=== PATIENT | female | born 2000 | race Native Hawaiian/Other Pacific Islander ===

== ENCOUNTER 2024-08-02 16:39 | Outpatient (CLI) | payer OTHER, SELFPAY ==
[2024-08-02 16:54] VITALS: PULSE 78; O2SAT 99
[2024-08-02 16:55] VITALS: BP 97/53; PULSE 75
[2024-08-02] MEDS: ACETAMINOPHEN 500 MG TABLET 1000 MG PO (17:46)
[2024-08-02 17:50] LABS: Appearance Urine Clear (Clear); Bilirubin Urine Negative (Negative); Blood Urine Negative (Negative); Color Urine Yellow (Yellow); Glucose Urine Negative (Negative); Ketones Urine Negative (Negative); Leukocyte Esterase Urine Negative (Negative); Nitrite Urine Negative (Negative); Protein Urine Negative (Negative); Specific Gravity Urine 1.015 (1.000-1.030); Urobilinogen Urine 0.2 (0.2-1.0); pH Urine 7.5 (5.0-8.5)
--- NOTE | 2024-08-02 18:02 | CRLHL7_ITS ---
For Patients: As a result of the Century Cures Act, medical imaging exams and procedure reports are released immediately into your electronic medical record. You may view this report before your referring provider. If you have questions, please contact your health care provider. Indication: Palpable mass superior to the umbilicus. Technique: Ultrasound abdomen limited with color Doppler analysis. Comparison: None. Findings/Impression: In the supraumbilical area of concern is a relatively large fat containing ventral hernia. No sign of bowel involvement. No other abnormality. Dictated by Alek Sanders MD @ 08/02/2024 6:58:28 PM (Electronically Signed)
--- NOTE | 2024-08-02 19:34 | W.PM.OBO ---
OB Outpatient HPI History of Present Illness Date Seen: 08/02/24 History of Present Illness: 23 year old at 24 1/7 weeks gestation, STEPHANIE 11/21/24 by LMP, presents by EMS due to abdominal pain. Patient presents with complaints of a hernia. Patient states that she has noted a bump in her abdomen, close to her umbilicus and to the right side. Patient describes it as golf ball sized, she notes that is more prominent when she is standing and then it is not while she is laying down. She noticed it first May and visited urgent care, they recommended to F/U with her OB provider. Patient states that she did mention it to OB provider and was given return precautions if symptoms worsened. Patient states that this afternoon pain was worse, it comes and goes, localized to the midline right upper abdomen, associated with mild nausea, no vomiting, noticed looser stools today, no fever, no chills. Baby has been moving well, denies abdominal tightening, abnormal vaginal discharge. 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 Baby moving naturally: No Bleeding: No Contractions: No Leaking fluid: No Discharge: No Heartburn: No Back pain: No Meds Home Medications and Allergies Home Medications ?Medication ?Instructions ?Recorded ?Confirmed ?Type No Known Home Medications 08/02/24 08/02/24 History Allergies Allergy/AdvReac Type Severity Reaction Status Date / Time No Known Drug Allergies Allergy Verified 08/02/24 16:59 [facility] Social History Smoking Status: Never smoker History History 2 Elective abortions Para 1 Spontaneous abortions Hx # Term Pregnancies Ectopic pregnancies Hx # Pregnancies Multiple births Number of Living Children 1 OB - H&P: Exam Physical Exam Vital signs: Pulse BP Pulse Ox 75 97/53 L 99 08/02/24 16:55 08/02/24 16:55 08/02/24 16:54 Narrative: VITAL SIGNS: As noted above. GENERAL APPEARANCE: Alert, cooperative female in no acute distress. MOOD & AFFECT: Normal. ABDOMEN: Gravid, no fundal tenderness, soft, no guarding, no rebound, positive bowel sounds, slightly tender to deep palpation of the midline upper abdomen and towards the right side of the right upper quadrant. EXTREMITIES: Nonedematous. Well perfused. Nontender. NST: Appropriate for gestational age, no uterine contractions Imaging: Findings/Impression: In the supraumbilical area of concern is a relatively large fat containing ventral hernia. No sign of bowel involvement. No other abnormality. Labs Labs Laboratory Tests 08/02/24 Range/Units 17:14 Urine Color Yellow (Yellow) Urine Appearance Clear (Clear) Urine pH 7.5 (5.0-8.5) Ur Specific [place] 1.015 (1.000-1.030) Urine Protein Negative (Negative) Urine Glucose (UA) Negative (Negative) Urine Ketones Negative (Negative) Urine Blood Negative (Negative) Urine Nitrite Negative (Negative) Urine Bilirubin Negative (Negative) Urine Urobilinogen 0.2 (0.2-1.0) Ur Leukocyte Esterase Negative (Negative) Assessment and Plan Assessment and plan (1) Abdominal hernia: Status: Acute Plan Fat containing ventral hernia , it seems like it is non reducible?. At this moment pain has improved after acetaminophen and rest. Physical exam no evidence of acute abdomen. Case was discussed with head strength and conditioning coach general surgeon who was able to review US images, in if symptoms are manageable, there is no concern for bowel incarceration, surgical intervention is avoided due to high risk of recurrence. At this moment, patient is stable and symptoms have improved. Following recommendations given: 1. Follow up with primary OB provider within 1 week to discuss current events and findings. 2. Recommend consult with general surgeon, offered to consult with one of our providers in clinic, but patient prefers a provider closer to home. 3. Utilize some support belly band. 4. NO lifting at work until symptoms improve. Frequent breaks from walking at least every 2-3 hours, 15 minutes long.
[2024-08-02 19:37] LABS: Basophils Absolute Auto 0.03 K/uL (0.00-0.30); Basophils Percent Auto 0.3 % (0.0-3.0); Eosinophils Absolute Auto 0.35 K/uL (0.00-0.50); Eosinophils Percent Auto 3.2 % (0.0-7.0); Hematocrit 33.1 % (33.0-51.0); Hemoglobin* 10.8 gm/dL (12.0-16.0); Immature Granulocytes Abs Auto 0.04 K/uL (0.00-0.30); Immature Granulocytes Pct Auto 0.4 %; Lymphocytes Absolute Auto 2.69 K/uL (0.90-2.90); Lymphocytes Percent Auto 24.9 % (20-44); Mean Corpuscular HGB Conc 33 gm/dL (32-36); Mean Corpuscular Hemoglobin 31 pg (26-34); Mean Corpuscular Volume 96 fL (80-100); Neutrophils Absolute Auto 6.92 K/uL (1.7-7.0); Neutrophils Percent Auto 64.2 % (42.0-72.0); Platelet Count* 219 K/uL (140-440); Red Blood Count 3.45 m/uL (4.00-5.20); White Blood Count* 10.79 K/uL (4.50-11.00)
[2024-08-02 19:47] LABS: Slide Review Reflex No
[2024-08-02 19:50] LABS: Albumin* 3.4 g/dL (3.3-5.0); Chloride* 106 mmol/L (96-114); Sodium* 134 mmol/L (135-149)
[2024-08-02 19:51] LABS: Potassium* 3.6 mmol/L (3.6-5.1)
--- NOTE | 2024-08-02 19:51 | PC.OBNST ---
NST Note NST Note Start: 08/02/24 16:59 Freq: ONCE Status: Active Protocol: Document 08/02/24 18:54 WK (Rec: 08/02/24 19:51 WK [id number]) NST Note 2 Para (# of births) 1 EDC 11/20/24 Gestational Age In Weeks & Days 24 Weeks & 2 Days Patient Presented with Complaint(s) of Pain If Pain, describe location RUQ pain- very localized Other Complaints Pt reports having a hernia Appropriate for Gestational Age Yes RN Danyel RNC Date 08/02/24 Appropriate for Gestational Age Yes RN Staci RN Date 08/02/24 OB NST charge Yes Complete NST Note via Write Note Yes The provider's electronic signature indicates the NST is reactive/appropriate for gestational age. *Note to provider: If an addendum is required, open the patient's chart and click on the note under the Nurse/Allied Health tab.
[2024-08-02 19:53] LABS: Alkaline Phosphatase* 98 U/L (40-150); Anion Gap 8 mEq/L (7-15); Aspartate Amino Transferase* 21 U/L (12-35); Bilirubin Total* 0.4 mg/dL (0.1-1.5); Blood Urea Nitrogen* 4 mg/dL (5-24); Carbon Dioxide* 20 mmol/L (20-32); Creatinine* 0.4 mg/dL (0.5-1.5); Estimated Glomerular Filt Rate 143 ml/min; Glucose* 96 mg/dL (60-115); Total Protein* 6.1 g/dL (6.0-8.3)
[2024-08-02 19:54] LABS: Alanine Aminotransferase* 10 U/L (4-35); Calcium* 8.8 mg/dL (8.4-10.6)
== END 2024-08-02 20:51 | disposition home or self-care (01) ==
LOC: OB OUT 16:41 → OB 16:42
PROVIDERS: Visit Provider Obstetrics & Gynecology
DX: O26.892 Other specified pregnancy related conditions, second trimester (principal); K46.9 Unspecified abdominal hernia without obstruction or gangrene; Z3A.24 24 weeks gestation of pregnancy
CPT/HCPCS: 36415; 59025; 76705; 80053; 81003; 85025; G0463; A9270

== ENCOUNTER 2024-08-31 14:35 | Outpatient (CLI) | payer MEDICAID, SELFPAY | END 2024-08-31 14:36 | disposition home or self-care (01) | PROVIDERS: Visit Provider Obstetrics & Gynecology | DX: Z34.83 Encounter for supervision of other normal pregnancy, third trimester (principal) | CPT/HCPCS: 86592 ==

== ENCOUNTER 2024-09-17 13:42 | Outpatient (CLI) | payer MEDICAID, SELFPAY ==
--- NOTE | 2024-09-17 14:00 | CRLHL7_ITS ---
For Patients: As a result of the Century Cures Act, medical imaging exams and procedure reports are released immediately into your electronic medical record. You may view this report before your referring provider. If you have questions, please contact your health care provider. INDICATION: Third trimester scan, evaluate growth. uterine size-date discrepancy COMPARISON: none TECHNIQUE: Real time hoffman scale imaging of the fetus was performed. FINDINGS: Sonographic imaging demonstrates a single living intrauterine gestation. Fetus demonstrates a regular cardiac rate of 144 beats per minute. Fetus has a vertex position. The placenta lies posteriorly. Amniotic fluid volume appears normal and there is a single deepest vertical pocket: 6.6 cm. The estimated weight is 1882gm which lies at the 81st %. BPD greater than 97th percentile. HC 80th percentile. AC 96th percentile. FL 8th percentile. The HC/AC ratio measures 1.03 range (0.96-1.13). IMPRESSION: Sonographic gestational age 32 weeks 2 days and a sonographic due date of 11/10/2024. Sonographic age 11 days ahead of the clinical age. Estimated weight 81st percentile. Abdominal circumference 96th percentile. BPD greater than 97th percentile. Dictated by Bernabe Barrios MD @ 09/18/2024 9:48:17 AM (Electronically Signed)
== END 2024-09-17 13:43 | disposition home or self-care (01) ==
LOC: US 13:43
PROVIDERS: Visit Provider Obstetrics & Gynecology
DX: O36.63X0 Maternal care for excessive fetal growth, third trimester, not applicable or unspecified (principal); Z3A.32 32 weeks gestation of pregnancy
CPT/HCPCS: 76816

== ENCOUNTER 2024-09-24 19:35 | Outpatient (CLI) | payer MEDICAID, SELFPAY ==
[2024-09-24 19:51] VITALS: BP 99/64; PULSE 83
[2024-09-24 20:14] LABS: Appearance Urine Clear (Clear); Bilirubin Urine Negative (Negative); Blood Urine Negative (Negative); Color Urine Yellow (Yellow); Glucose Urine Negative (Negative); Ketones Urine Negative (Negative); Leukocyte Esterase Urine Negative (Negative); Nitrite Urine Negative (Negative); Protein Urine Negative (Negative); Urobilinogen Urine 0.2 (0.2-1.0)
--- NOTE | 2024-09-24 20:18 | CRLHL7_ITS ---
For Patients: As a result of the Century Cures Act, medical imaging exams and procedure reports are released immediately into your electronic medical record. You may view this report before your referring provider. If you have questions, please contact your health care provider. INDICATION: Flank pain TECHNIQUE: Limited ultrasound examination of the kidneys and bladder was performed. Grayscale and color Doppler images were obtained. COMPARISON: None. FINDINGS: Right kidney: 12.3 x 5.3 x 5.6 cm. Normal in size and echogenicity. Normal cortex. No suspicious renal masses. No hydronephrosis or obstructive calculus identified. Left kidney: 10.8 x 6.7 x 6.1 cm. Normal in size and echogenicity. Normal cortex. No suspicious renal masses. No hydronephrosis or obstructive calculus identified. Bladder: Unremarkable. Prevoid volume of 52 mL. No postvoid images obtained. Color Doppler images reveal bilateral ureteral jets. IMPRESSION: Unremarkable ultrasound examination of the kidneys and bladder. No hydronephrosis. Dictated by Rowdy Kilpatrick MD @ 09/24/2024 9:25:48 PM (Electronically Signed)
[2024-09-24 20:28] LABS: Amnisure Rom* Negative
[2024-09-24 20:56] LABS: Clue Cells No Clue Cells Seen (None Seen); Trichomonas No Trichomonas Seen (None Seen); Yeast No Yeast Seen (None Seen)
[2024-09-24 21:01] LABS: Fetal Fibronectin* Negative (Negative)
[2024-09-24 21:56] VITALS: BP 110/66; PULSE 75
--- NOTE | 2024-09-24 23:20 | PC.OBNST ---
NST Note NST Note Start: 09/24/24 19:41 Freq: ONCE Status: Discharge Protocol: Document 09/24/24 23:19 FABIOLA (Rec: 09/24/24 23:20 FABIOLA [id number]) NST Note 2 Para (# of births) 1 EDC 11/21/24 Gestational Age In Weeks & Days 31 Weeks & 5 Days Patient Presented with Complaint(s) of Contractions/cramping Reactive Yes Appropriate for Gestational Age Yes RN lobo Nicole RN Date 09/24/24 Reactive Yes Appropriate for Gestational Age Yes EBER Torres RN Date 09/24/24 OB NST charge Yes Complete NST Note via Write Note Yes The provider's electronic signature indicates the NST is reactive/appropriate for gestational age. *Note to provider: If an addendum is required, open the patient's chart and click on the note under the Nurse/Allied Health tab.
== END 2024-09-24 23:18 | disposition home or self-care (01) ==
LOC: OB OUT 19:35 → OB 19:38
PROVIDERS: Visit Provider Obstetrics & Gynecology
DX: O47.03 False labor before 37 completed weeks of gestation, third trimester (principal); Z3A.31 31 weeks gestation of pregnancy
CPT/HCPCS: 59025; 76770; 81003; 84112; 87210; G0463

== ENCOUNTER 2024-10-01 07:38 | Emergency (ER) | payer MEDICAID, SELFPAY ==
[2024-10-01] VITALS (15 sets, daily range): BP systolic 100–114; BP diastolic 59–72; PULSE 80–99; RESP 24; TEMP 36.3; O2SAT 94–99; BMI 31.7
--- NOTE | 2024-10-01 08:11 | ED.SOB ---
HPI - SOB/Dyspnea General Time Seen by Provider: 08:11 Date Seen: 10/01/24 Chief Complaint: Shortness of Breath/Dyspnea Stated Complaint: shortness of breath, 32 weeks Time Seen by Provider: 10/01/24 08:11 Source: patient and RN notes reviewed Mode of arrival: ambulatory Limitations: no limitations History of Present Illness HPI Narrative: Dipesh is a very pleasant 23-year-old female at approximately 32 weeks with 1 living child who comes to the emergency room with her mother for evaluation of chest pain. Patient notes that she got up this morning to go to work at [employer] in [place] at approximately 0300 hours. Shortly thereafter she developed chest pain in the upper aspect of her sternum. This was associated with shortness of breath. She also agrees that she got some diarrhea today and has had a mild cough that has been nonproductive. She has had no known exposures to COVID but her mom who is with her states that she has had cold-like symptoms and her son has a cough. She has not developed any fevers. She has no history of heart issues. In the 1st patient developed gestational diabetes as well as preeclampsia. Patient's mom describes difficulty in diagnosing preeclampsia as she states that the blood pressure was always normal. She also states that she feels like her daughters hands have been more swollen right greater than left and patient notes that she has been seeing occasional spots in her vision and that yesterday her right eye got really blurry and she could not see out of it. This has happened before. She has not had any belly pain. Patient's mom further describes a request that she have a this time as last time the induced her and because she does not dilate they had to give her medication and when she had the baby she had a significant vaginal tear and had to go to the OR. Related Data Home Medications ?Medication ?Instructions ?Recorded ?Confirmed ferrous sulfate 325 mg (65 mg 325 mg PO QDAY 09/17/24 10/01/24 iron) tablet (Feosol) Previous Rx's ?Medication ?Instructions ?Recorded famotidine 20 mg tablet (Pepcid) 20 mg PO BID #60 tabs 10/01/24 Allergies Allergy/AdvReac Type Severity Reaction Status Date / Time cat dander Allergy Mild Congested Verified 10/01/24 07:54 nickel Allergy Mild Rash Verified 10/01/24 07:54 Review of Systems Status of ROS: Reports: 10 or more systems reviewed and unremarkable except as noted in History and below Const: Denies: fever or chills Eyes: Reports: blurry vision and floaters ENMT: Denies: throat pain or nasal discharge Cardio: Reports: chest pain, edema (In the hand) and shortness of breath with exertion; Denies: palpitations, swelling of feet/ankles or lightheadedness Resp: Reports: shortness of breath and cough; Denies: wheezing GI: Reports: diarrhea; Denies: abdominal pain, nausea or vomiting : Denies: painful urination Musculo: Denies: back pain Neuro: Reports: headache (Intermittent and during the whole ) Allergy/Immuno: Denies: wheezing PFSH PFS Medical History History of pre-eclampsia ?Z87.59 - Personal history of other complications of , childbirth and the puerperium (ICD-10) History of gestational diabetes ?Z86.32 - Personal history of gestational diabetes (ICD-10) Social History What is your current living situation?: I presently have a place to live Problems where you live: no known problems In the past 12 months, utilities in danger of being shut off: no In past 12 months, lack of transportation kept you from medical appts, meetings, work, or getting things needed for daily living: no In the past 12 mos, have been you worried that your food would run out before you had money to buy more?: never true In the past 12 mos, the food you bought just didn't last and you didn't have money to buy more?: never true Smoking Status: Never smoker Do you use any of these nicotine containing products: None How often do you have a drink containing alcohol: never How often do you have six or more drinks on one occasion: Never AUDIT-C Alcohol total score: 0 Non-prescribed substance use: denies use How often does anyone, including family, friends and others, physically hurt you: never How often does anyone, including family, friends and others, insult or talk down to you: never How often does anyone, including family, friends and others, threaten you with harm: never How often does anyone, including family, friends and others, scream or curse at you: rarely Little interest or pleasure in doing things: not at all Feeling down, depressed, or hopeless: not at all Do you think of yourself as: straight/heterosexual Gender Identity: female Are you currently sexually active: Yes In the past 12 months, how many sex partners have you had: one service: No Exam Narrative: Exam Narrative: Patient is alert and oriented. Her EOM is full and pupils are equal reactive. Her head is atraumatic. Oral cavity with moist mucous membranes. Neck is supple without lymphadenopathy. Heart is with a regular rate and rhythm. Lung sounds are distant but they are equal and there is no wheezing. She is somewhat tachypneic but improves with distraction. Heart with out murmur or rub. Abdomen is gravid. No tenderness in the right upper quadrant. I do not note any edema of the extremities. Lower extremities without edema rash calf tenderness or erythema. Const: Vital Signs, click to edit/add: Vital Signs - 24 hr 10/01/24 07:47 10/01/24 08:16 10/01/24 08:31 Temperature 97.3 F L Pulse Rate Pulse Rate [Pulse Oximeter] 86 Respiratory Rate 24 Blood Pressure 110/69 100/59 L Blood Pressure [Ri ght Upper Arm] 105/64 Pulse Oximetry 98 Oxygen Delivery Me od Room Air 10/01/24 09:09 10/01/24 09:10 10/01/24 09:15 Temperature Pulse Rate 84 86 91 Pulse Rate [Pulse Oximeter] Respiratory Rate Blood Pressure 108/66 Blood Pressure [Ri ght Upper Arm] Pulse Oximetry 96 94 97 Oxygen Delivery Me thod 10/01/24 09:30 10/01/24 09:31 10/01/24 09:45 Temperature Pulse Rate 80 84 83 Pulse Rate [Pulse Oximeter] Respiratory Rate Blood Pressure 108/65 Blood Pressure [Ri ght Upper Arm] Pulse Oximetry 96 96 96 Oxygen Delivery Me thod 10/01/24 10:00 10/01/24 10:01 10/01/24 10:15 Temperature Pulse Rate 86 95 99 Pulse Rate [Pulse Oximeter] Respiratory Rate Blood Pressure 112/66 Blood Pressure [Ri ght Upper Arm] Pulse Oximetry 98 99 [facility] 10:30 10/01/24 10:31 10/01/24 11:01 Temperature Pulse Rate 84 97 Pulse Rate [Pulse Oximeter] Respiratory Rate Blood Pressure 105/69 114/72 Blood Pressure [Ri ght Upper Arm] Pulse Oximetry 98 98 [facility] Documenting provider has reviewed patient's vital signs: yes Course Course ED Course: At this time differential diagnosis for chest pain includes reflux/GERD, acute coronary syndrome, pericarditis, cardiomyopathy, COVID, pneumonia, chest wall pain, anxiety, preeclampsia. IV will be placed in labs to include CBC, comprehensive, troponin, CRP, D-dimer, urinalysis ordered. I also spoke with OB and they have added pertinent OB labs on as well for preeclampsia. EKG and cardiac monitoring ordered. Ob is coming down to monitor baby as well. Reevaluation(s) Reevaluation #1: Patient seen by OB nursing staff. Recommended Tylenol for headache which we will give. All the preeclampsia labs are reassuring at this time with normal creatinine, alkaline phosphatase within normal limits for , normal platelets and normal protein ratio. EKG by my read shows sinus rhythm and there are no acute ST or T-wave changes. Troponin is negative. Plan on 2nd troponin at 1045 hours. I did speak with regarding plan going forward. Patient's D-dimer being elevated is normal. I was hopeful that it would perhaps be a near normal and we could rule out possibility of PE as patient has normal heart rate and oxygen levels. Reflux is a more likely diagnosis and thus we have given 2 Tums tablets the patient. Plan is to also test for COVID. If chest pain improves patient will be discharged to follow-up at 1400 hours this afternoon with primary OB. If chest pain continues plan on CT of the chest rule out PE protocol. Reevaluation #2: Patient notes resolution of the headache with Tylenol. Notes that her chest pain is much improved. Discussed with patient and her mom risks benefits of CT. At this time she has not had any tachycardia, maintains an appropriate O2 saturation and has no calf swelling tenderness or history of DVT. While her D-dimer is elevated, this can be normal in . At this time patient and her mom would like to avoid CT and I do agree with this decision. Vital Signs Vital signs: Initial Vital Signs Temperature 97.3 F L 10/01/24 07:47 Temperature Source Oral 10/01/24 07:47 Pulse Rate 86 10/01/24 07:47 Respiratory Rate 24 10/01/24 07:47 Respiratory Effort Normal, Spontaneous, Non-Labored 10/01/24 07:47 Respiratory Depth Normal 10/01/24 07:47 Respiratory Pattern Normal 10/01/24 07:47 Blood Pressure 105/64 10/01/24 07:47 Blood Pressure Mean 77 10/01/24 07:47 Blood Pressure Position Sitting 10/01/24 07:47 Pulse Oximetry 98 10/01/24 07:47 Oxygen Delivery Method Room Air 10/01/24 07:47 Vital Signs Temperature 97.3 F L 10/01/24 07:47 Pulse Rate 86 10/01/24 07:47 Respiratory Rate 24 10/01/24 07:47 Blood Pressure 105/64 10/01/24 07:47 Pulse Oximetry 98 10/01/24 07:47 Oxygen Delivery Method Room Air 10/01/24 07:47 Temperature 97.3 F L 10/01/24 07:47 Pulse Rate 97 10/01/24 10:31 Respiratory Rate 24 10/01/24 07:47 Blood Pressure 114/72 10/01/24 11:01 Pulse Oximetry 98 10/01/24 10:31 Oxygen Delivery Method Room Air 10/01/24 07:47 Medications Administered Medications: Discontinued Medications Generic Name Dose Route Start Last Admin Trade Name Shanique PRN Reason Stop Dose Admin Acetaminophen 1,000 mg 10/01/24 09:45 10/01/24 09:56 Acetaminophen 500 Mg Tablet PO 10/01/24 09:46 1,000 mg ONCE ONE Administration Calcium Carbonate 500 mg 10/01/24 09:46 10/01/24 10:30 Calcium Carbonate 500 Mg Chew PO 10/01/24 09:47 500 mg ONCE ONE Administration Famotidine 20 mg 10/01/24 11:16 10/01/24 11:31 Famotidine 20 Mg Tablet PO 10/01/24 11:17 20 mg ONCE ONE Administration MDM - SOB/Dyspnea MDM Narrative Medical decision making narrative: 1. Atypical chest pain -troponins negative x2 an EKG reassuring. While D-dimer elevated patient has no hypoxia, tachycardia, history of DVT or calf tenderness. She is feeling much better at this point after Tums and Tylenol. 2. Reflux-patient noted to have improvement after Tums. Will give her dose of Pepcid 20 mg here in the ED and I would like her to continue this b.i.d. for her . If this does not work she may also use omeprazole. 3. Hyperglycemia-discussed this with OBGYN and they will address this in the clinic. Patient has an appointment this afternoon at 1430 hours. 4. History of preeclampsia-laboratory values reassuring and there is no evidence of hypertension, protein urea or alteration of her labs. While she is at higher risk for preeclampsia as she developed this during her 1st her tests are reassuring today. 5. Disposition-home at this time. COVID test is outstanding but they agree to be called at home if this would become positive. Both parties feel comfortable going home. Addendum: COVID negative. Medical Records Attestation: I reviewed the patient's medical records. Lab Data Attestation: I reviewed the patient's lab results. Labs: Lab Results 10/01/24 10/01/24 10/01/24 Range/Units 08:22 08:45 08:45 WBC 7.04 (4.50-11.00) K/uL RBC 3.41 L (4.00-5.20) m/uL Hgb 10.0 L (12.0-16.0) gm/dL Hct 31.8 L (33.0-51.0) % MCV 93 (80-100) fL MCH 29 (26-34) pg MCHC 31 L (32-36) gm/dL RDW Coeff of Violet 14.0 (11.5-15.5) % Plt Count 198 (140-440) K/uL Neut % (Auto) 60.2 (42.0-72.0) % Lymph % (Auto) 25.7 (20-44) % [place] % (Auto) 8.1 (0.0-11.0) % Eos % (Auto) 4.0 (0.0-7.0) % Baso % (Auto) 0.4 (0.0-3.0) % Neut # (Auto) 4.24 (1.7-7.0) K/uL Lymph # (Auto) 1.81 (0.90-2.90) K/uL [place] # (Auto) 0.60 (0.00-0.90) K/UL Eos # (Auto) 0.28 (0.00-0.50) K/uL Baso # (Auto) 0.03 (0.00-0.30) K/uL Abs Immat Gran (auto) 0.11 (0.00-0.30) K/uL Imm/Tot Granulo (auto) 1.6 % D-Dimer Quant (PE/DVT) 1.89 H (0.00-0.50) ug/ml Sodium 131 L (135-149) mmol/L Potassium 3.4 L (3.6-5.1) mmol/L Chloride 106 (96-114) mmol/L Carbon Dioxide 18 L (20-32) mmol/L Anion Gap 7 (7-15) mEq/L BUN 5 Cancelled (5-24) mg/dL Creatinine 0.3 L (0.5-1.5) mg/dL Estimated Creat Clear Estimated GFR ml/min Glucose (60-115) mg/dL Calcium (8.4-10.6) mg/dL Total Bilirubin (0.1-1.5) mg/dL AST (12-35) U/L ALT (4-35) U/L Alkaline Phosphatase (40-150) U/L Total Protein (6.0-8.3) g/dL Albumin (3.3-5.0) g/dL Urine Color Yellow (Yellow) Urine Appearance Slightly Cloudy A (Clear) Urine pH 6.0 (5.0-8.5) Ur Specific [place] 1.020 (1.000-1.030) Urine Protein Negative (Negative) Urine Glucose (UA) 3+ A (Negative) Urine Ketones Trace A (Negative) Urine Blood Negative (Negative) Urine Nitrite Negative (Negative) Urine Bilirubin Negative (Negative) Urine Urobilinogen 1.0 (0.2-1.0) Ur Leukocyte Esterase Negative (Negative) Urine RBC 0-2 (0-2) Urine WBC 5-10 A (0-5) Ur Squamous Epith Cells Few (None-Few) Urine Bacteria Moderate A (None) Urine Creatinine mg/dL Protein/Creatinin Ratio (0-0.19) Urine Total Protein mg/dL SARS-CoV-2 (PCR) (Negative) Influenza Type A (PCR) (Negative) Influenza Type B (PCR) (Negative) RSV (PCR) (Negative) POC Troponin I 0.00 L (0.01-0.04) ng/ml 10/01/24 10/01/24 10/01/24 Range/Units 08:45 08:45 08:45 WBC (4.50-11.00) K/uL RBC (4.00-5.20) m/uL Hgb (12.0-16.0) gm/dL Hct (33.0-51.0) % MCV (80-100) fL MCH (26-34) pg MCHC (32-36) gm/dL RDW Coeff of Violet (11.5-15.5) % Plt Count (140-440) K/uL Neut % (Auto) (42.0-72.0) % Lymph % (Auto) (20-44) % [place] % (Auto) (0.0-11.0) % Eos % (Auto) (0.0-7.0) % Baso % (Auto) (0.0-3.0) % Neut # (Auto) (1.7-7.0) K/uL Lymph # (Auto) (0.90-2.90) K/uL [place] # (Auto) (0.00-0.90) K/UL Eos # (Auto) (0.00-0.50) K/uL Baso # (Auto) (0.00-0.30) K/uL Abs Immat Gran (auto) (0.00-0.30) K/uL Imm/Tot Granulo (auto) % D-Dimer Quant (PE/DVT) (0.00-0.50) ug/ml Sodium (135-149) mmol/L Potassium (3.6-5.1) mmol/L Chloride (96-114) mmol/L Carbon Dioxide (20-32) mmol/L Anion Gap (7-15) mEq/L BUN (5-24) mg/dL Creatinine Cancelled (0.5-1.5) mg/dL Estimated Creat Clear 243.32 Cancelled Estimated GFR 154 Cancelled ml/min Glucose 174 H (60-115) mg/dL Calcium 8.6 (8.4-10.6) mg/dL Total Bilirubin < 0.1 L (0.1-1.5) mg/dL AST 16 (12-35) U/L ALT (4-35) U/L Alkaline Phosphatase (40-150) U/L Total Protein (6.0-8.3) g/dL Albumin (3.3-5.0) g/dL Urine Color (Yellow) Urine Appearance (Clear) Urine pH (5.0-8.5) Ur Specific [place] (1.000-1.030) Urine Protein (Negative) Urine Glucose (UA) (Negative) Urine Ketones (Negative) Urine Blood (Negative) Urine Nitrite (Negative) Urine Bilirubin (Negative) Urine Urobilinogen (0.2-1.0) Ur Leukocyte Esterase (Negative) Urine RBC (0-2) Urine WBC (0-5) Ur Squamous Epith Cells (None-Few) Urine Bacteria (None) Urine Creatinine mg/dL Protein/Creatinin Ratio (0-0.19) Urine Total Protein mg/dL SARS-CoV-2 (PCR) (Negative) Influenza Type A (PCR) (Negative) Influenza Type B (PCR) (Negative) RSV (PCR) (Negative) POC Troponin I (0.01-0.04) ng/ml 10/01/24 10/01/24 10/01/24 Range/Units 08:45 08:45 09:00 WBC (4.50-11.00) K/uL RBC (4.00-5.20) m/uL Hgb (12.0-16.0) gm/dL Hct (33.0-51.0) % MCV (80-100) fL MCH (26-34) pg MCHC (32-36) gm/dL RDW Coeff of Violet (11.5-15.5) % Plt Count (140-440) K/uL Neut % (Auto) (42.0-72.0) % Lymph % (Auto) (20-44) % [place] % (Auto) (0.0-11.0) % Eos % (Auto) (0.0-7.0) % Baso % (Auto) (0.0-3.0) % Neut # (Auto) (1.7-7.0) K/uL Lymph # (Auto) (0.90-2.90) K/uL [place] # (Auto) (0.00-0.90) K/UL Eos # (Auto) (0.00-0.50) K/uL Baso # (Auto) (0.00-0.30) K/uL Abs Immat Gran (auto) (0.00-0.30) K/uL Imm/Tot Granulo (auto) % D-Dimer Quant (PE/DVT) (0.00-0.50) ug/ml Sodium (135-149) mmol/L Potassium (3.6-5.1) mmol/L Chloride (96-114) mmol/L Carbon Dioxide (20-32) mmol/L Anion Gap (7-15) mEq/L BUN (5-24) mg/dL Creatinine (0.5-1.5) mg/dL Estimated Creat Clear Estimated GFR ml/min Glucose (60-115) mg/dL Calcium (8.4-10.6) mg/dL Total Bilirubin (0.1-1.5) mg/dL AST Cancelled (12-35) U/L ALT 12 Cancelled (4-35) U/L Alkaline Phosphatase 179 H (40-150) U/L Total Protein 6.0 (6.0-8.3) g/dL Albumin 3.2 L (3.3-5.0) g/dL Urine Color (Yellow) Urine Appearance (Clear) Urine pH (5.0-8.5) Ur Specific [place] (1.000-1.030) Urine Protein (Negative) Urine Glucose (UA) (Negative) Urine Ketones (Negative) Urine Blood (Negative) Urine Nitrite (Negative) Urine Bilirubin (Negative) Urine Urobilinogen (0.2-1.0) Ur Leukocyte Esterase (Negative) Urine RBC (0-2) Urine WBC (0-5) Ur Squamous Epith Cells (None-Few) Urine Bacteria (None) Urine Creatinine 72.8 mg/dL Protein/Creatinin Ratio 0.07 (0-0.19) Urine Total Protein < 5 mg/dL SARS-CoV-2 (PCR) (Negative) Influenza Type A (PCR) (Negative) Influenza Type B (PCR) (Negative) RSV (PCR) (Negative) POC Troponin I (0.01-0.04) ng/ml 10/01/24 10/01/24 Range/Units 10:30 10:45 WBC (4.50-11.00) K/uL RBC (4.00-5.20) m/uL Hgb (12.0-16.0) gm/dL Hct (33.0-51.0) % MCV (80-100) fL MCH (26-34) pg MCHC (32-36) gm/dL RDW Coeff of Violet (11.5-15.5) % Plt Count (140-440) K/uL Neut % (Auto) (42.0-72.0) % Lymph % (Auto) (20-44) % [place] % (Auto) (0.0-11.0) % Eos % (Auto) (0.0-7.0) % Baso % (Auto) (0.0-3.0) % Neut # (Auto) (1.7-7.0) K/uL Lymph # (Auto) (0.90-2.90) K/uL [place] # (Auto) (0.00-0.90) K/UL Eos # (Auto) (0.00-0.50) K/uL Baso # (Auto) (0.00-0.30) K/uL Abs Immat Gran (auto) (0.00-0.30) K/uL Imm/Tot Granulo (auto) % D-Dimer Quant (PE/DVT) (0.00-0.50) ug/ml Sodium (135-149) mmol/L Potassium (3.6-5.1) mmol/L Chloride (96-114) mmol/L Carbon Dioxide (20-32) mmol/L Anion Gap (7-15) mEq/L BUN (5-24) mg/dL Creatinine (0.5-1.5) mg/dL Estimated Creat Clear Estimated GFR ml/min Glucose (60-115) mg/dL Calcium (8.4-10.6) mg/dL Total Bilirubin (0.1-1.5) mg/dL AST (12-35) U/L ALT (4-35) U/L Alkaline Phosphatase (40-150) U/L Total Protein (6.0-8.3) g/dL Albumin (3.3-5.0) g/dL Urine Color (Yellow) Urine Appearance (Clear) Urine pH (5.0-8.5) Ur Specific [place] (1.000-1.030) Urine Protein (Negative) Urine Glucose (UA) (Negative) Urine Ketones (Negative) Urine Blood (Negative) Urine Nitrite (Negative) Urine Bilirubin (Negative) Urine Urobilinogen (0.2-1.0) Ur Leukocyte Esterase (Negative) Urine RBC (0-2) Urine WBC (0-5) Ur Squamous Epith Cells (None-Few) Urine Bacteria (None) Urine Creatinine mg/dL Protein/Creatinin Ratio (0-0.19) Urine Total Protein mg/dL SARS-CoV-2 (PCR) Negative SARS-CoV-2 (Negative) Influenza Type A (PCR) Negative PCR FLU A (Negative) Influenza Type B (PCR) Negative PCR FLU B (Negative) RSV (PCR) Negative PCR RSV (Negative) POC Troponin I 0.00 L (0.01-0.04) ng/ml ECG Data Attestation: I personally reviewed and interpreted this ECG as follows: ECG interpretation date: 10/01/24 Interpretation: EKG by my read shows sinus rhythm at a rate of 88. No evidence of acute ST or T-wave changes evidence of right heart strain. QT and IA intervals within normal limits. Discharge Plan Discharge Clinical Impression: Atypical chest pain, History of pre-eclampsia, Hyperglycemia Acid reflux Qualifiers: Esophagitis presence: esophagitis presence not specified Qualified Code(s): K21.9 - Gastro-esophageal reflux disease without esophagitis Headache Qualifiers: Headache type: unspecified Headache chronicity pattern: unspecified pattern Intractability: not intractable Qualified Code(s): R51.9 - Headache, unspecified Patient Disposition: Home, Self-Care Condition: Improved Additional Instructions: 1. You received your 1st dose of Pepcid here in the emergency room. This medication is every 12 hours and works to suppress acid production in the stomach. You may also use Tums occasionally but avoid Rolaids as this has salt in it. I did send a prescription to your pharmacy but [id number] the dose would be Pepcid 20 mg every 12 hours or twice a day. 2. Your blood sugar is high today and will be addressed in the clinic after my discussion with OBGYN 3. Rest and push fluids. 4. Will call you at home if your COVID test is positive. Your EKG for your heart was normal today and you have 2 blood test that were negative for any heart attack. Prescriptions: New famotidine [Pepcid] 20 mg tablet 20 mg PO BID Qty: 60 2RF No Action ferrous sulfate [Feosol] 325 mg (65 mg iron) tablet 325 mg PO QDAY Follow Up/Referrals: Provider,Not a Local [Non-Staff] - Stand Alone Forms: MyHealth Info Instructions
--- OUTSIDE RECORDS SUMMARY | 2024-10-01 08:36 | XMS_ITS | Clinical Summary ---
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 Name Role Phone Unknown, Md Primary Care Provider Melvi luu Unknown, Unavailable Unavailable Social History Tobacco Use Types Packs/Day Years Used Date Smoking Tobacco: Never Assessed Sex and Gender Information Value Date Recorded Sex Assigned at Not on file Gender Identity Not on file Sexual Orientation Not on file Last Filed Vital Signs Vital Sign Reading Time Taken Comments Blood Pressure - - Pulse - - Temperature - - Respiratory Rate - - Oxygen Saturation - - Inhaled Oxygen Concentration - - Weight 65.8 kg (145 lb) 09/01/2021 2:09 PM CDT Height 160 cm (5' 3) 09/01/2021 2:09 PM CDT Body Mass Index 25.69 09/01/2021 2:09 PM CDT Plan of Treatment Health Maintenance Due Date Last Done Comments Chlamydia/Gonorrhea Screening 2001 Evaluate Sexual History 2001 Hepatitis C Screening 2001 Pap Smear 2001 Anxiety Screening (EDDIE-2) 2002 Depression Assessment (PHQ-2) 2002 COVID-19 Vaccine ( season) 2024 07/15/2021, 06/24/2021 Influenza Vaccine (#1) 2024 10/01/2016 Adult Tetanus Booster 03/22/2032 03/22/2022, 013 RSV Vaccines (1 - 1-dose 75+ series) 2076 Pneumococcal <65 Aged Out 06/17/2003, 09/2002, 02/14/2002 No longer eligible based on patient's age to complete this topic HPV Vaccine Completed 11/07/2013, 06/21, 03/30/2013, Additional history exists Care Teams 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
--- OUTSIDE RECORDS SUMMARY | 2024-10-01 08:36 | XMS_ITS | Referral Summary ---
Author Organization [facility] Address [address] [place] [id number] Care Team Providers Care Poke In Name Role Phone Unknown, Primary Care Provider Melvi luu Unknown, Unavailable [...] 09/01/2021 2:09 PM CDT Plan of Treatment Not on file Care Teams Poke In Relationship Specialty Start Date End Date Unknown, NO ADDRESS/PHONE/FAX AFFILIATED PCP - General 08/07/21 Unknown, NO ADDRESS/PHONE/FAX AFFILIATED PCP - [facility] 08/07/21
--- OUTSIDE RECORDS SUMMARY | 2024-10-01 08:36 | XMS_ITS | Referral Summary ---
Author Organization [facility] Address [address] [place] [address]. 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 Do not apply to face or body folds. 45 g 1 8 Active UNABLE TO FIND MEDICATION NAME: Unknown to Family monthly injections for Contol. Active amitriptyline (ELAVIL) 10 MG tabletIndications :Migraine without aura and without status migrainosus, not intractable Week 1) take 1 tablet 45 minutes before bedtime Week 2 and after) take 2 tablets 45 minutes before bedtime 60 tablet 3 9 Active ibuprofen (ADVIL/MOTRIN) 200 MG tabletIndications :Migraine without aura and without status migrainosus, not intractable Take 3 tablets at headache onset. You may repeat this dose after 6-8 hours if the headache is ongoing. Do not take more than 2 doses in 24 hours. Do not use more than 2 days per week. 100 tablet 9 Active Vit-Fe Fumarate-FA ( MULTIVITAMIN W/IRON) 27-0.8 MG tabletIndications : Take 1 tablet by mouth daily Active acetaminophen (TYLENOL) 500 MG tablet Take 500-1,000 mg by mouth every 6 hours as needed for mild pain Active ondansetron (ZOFRAN) 4 MG tabletIndications :Non-intractable vomiting with nausea, unspecified vomiting type Take 1 tablet (4 mg) by mouth every 8 hours as needed for nausea 3 tablet 2 Active Active Problems Problem Noted Date Diagnosed Date Encounter for triage in patient 022 Neck pain 11/30/2018 Head injury 11/05/2018 Herpes simplex virus (HSV) infection 02/27/2007 Overview (08/21/2015): Problem list name updated by automated process. Provider to review Immunizations Name Administration Dates Next Due DTAP (<7y) 07/16/2008, 7,06/17/2003,2001,03/26/2002,02/14/2002 HEPA 07/11/2007,11/28/2003 HEPATITIS A (PEDS 12M-18Y) 07/16/2008 HIB (PRP-T) 06/17/2003, 2,03/26/2002,2001 HPV Quadrivalent 11/07/2013, 3,03/30/2013,2002 HepB 05/31/2002,02/14/2002,2001 Influenza (IIV3) PF 10/31/2006 Influenza Vaccine >6 months,quad, PF 10/01/2016 MMR 08/16/2008,07/11/2007,06/17/2003 Meningococcal ACWY (Menactra??) 12/21/2016 Meningococcal ACWY (Menveo??) 01/26/2019, 003 Pneumococcal (PCV 7) 06/17/2003,05/31/2002,02/14 Poliovirus, inactivated (IPV) 07/16/2008 ,07/11/2007,05/31/2002,2001,02/14/2002 TDAP Vaccine (Adacel) 03/30/2013 Varicella 07/16/2008,07/11/2007,06/17/2003 Social History Tobacco Use Types Packs/Day Years Used Date Smoking Tobacco: Never Smokeless Tobacco: Never Tobacco Cessation:Counseling Given: No Alcohol Use Standard Drinks/Week Comments No 0 (1 standard drink = 0.6 oz pur e alcohol) AUDIT-C Answer Date Recorded Frequency of Alcohol Consumption Never 11/04/2018 Average Number of Drinks Not on file 018 Frequency of Binge Drinking Not on file 10/21 PHQ-2 Answer Date Recorded PHQ-2 Score 0 11/28/2018 Adolescent Education Answer Date Record ed Getting School Help Needed Not on file 09/06 Comments No Sex and Gender Information Value Date Recorded Sex Assigned at Not on file Legal Sex Female 4:43 AM PERMIT SPECIALIST Gender Identity Not on file Sexual Orientation Not on file Last Filed Vital Signs Vital Sign Reading Time Taken Comments Blood Pressure 109/59 01/28/2022 9:07 AM PERMIT SPECIALIST Pulse 72 10/09/2019 10:10 AM PERMIT SPECIALIST Temperature 37.2 ??C (98.9 ??F) 01/28/2022 9:07 AM CS T Respiratory Rate 18 01/28/2022 9:07 AM PERMIT SPECIALIST Oxygen Saturation 98% 01/28/2022 9:07 AM PERMIT SPECIALIST Inhaled Oxygen Concentration - - Weight 70.8 kg (156 lb) 01/28/2022 6:43 AM PERMIT SPECIALIST Height 160 cm (5' 3) 01/28/2022 6:43 AM PERMIT SPECIALIST Body Mass Index 27.63 01/28/2022 6:43 AM PERMIT SPECIALIST Plan of Treatment Not on file Procedures Procedure Name Priority Date/Time Associated Diagnosis Comments HIV 1&2 ANTIBODY (EXTERNAL RESULT) Routine 11/30/2021 4:35 PM PERMIT SPECIALIST from Last 3 Months or Most Recently Relevant to Health Maintenance Results * HIV-1 Antibody (External Result) (11/30/2021 4:35 PM PERMIT SPECIALIST) HIV 1&2 Antibody (External) Nonreactive Nonreactive EXTERNAL LAB 11/30/2021 4:35 PM PERMIT SPECIALIST us Patient Reported LAB - HIM EXTERNAL RESULT Final Result EXTERNAL LAB External Lab from Last 3 Months or Most Recently Relevant to Health Maintenance Insurance [facility] Care 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 [id number] [place] [id number] PCP - General 11/04/18 Paulina Owusu APRN ASSISTANT SUPERINTENDENT [address] [place] [address] Nurse Practitioner Nurse Practitioner - Pediatrics 08/28/19 Laila Ramirez MD [phone] [address] Pediatric Neurology 08/28/19
--- OUTSIDE RECORDS SUMMARY | 2024-10-01 08:36 | XMS_ITS | Clinical Summary ---
Author Organization [facility] Address [place], [place] [address] Care Team Providers Care Appeals Court Associate Justice Name Role Phone Pcp, No Unavailable Unavailable Md Rolo Primary Care Provider [phone] Isela Esposito MD Unavailable [phone] Allergies Active Allergy Reactions Criticality Noted Date Comments Cat Dander Other - Describe In Comment Field 11/16/2021 Congested nose Eyes red Wheezing Lactose Diarrhea 11/16/2018 Nickel Edema 10/04/2019 Medications Medication Sig Dispensed Refills Start Date End Date Status acetaminophen (TYLENOL) 325 mg tabletIndications :Vaginal delivery Take 1-2 Tablets (325-650 mg) by mouth every 4 hours if needed (mild pain). Max acetaminophen dose: 4000mg in 24 hrs. 100 Tablet 06/10/2022 Active aspirin (ECOTRIN) 81 mg enteric coated tablet Take 81 mg by mouth once daily. Active 25/iron fum/folic/dha (-1 ORAL) Take by mouth. Act gerardo Active Problems Problem Noted Date Diagnosed Date High-risk in second trimester 06/26/20 24 Abnormal genetic test during [facility] Supervision of high risk in first trimester 05/23/2024 Overview (06/22/2024): SRO MPP - Completed [x] Patient name: Dipesh Paz : 2000 Age: 23 y.o. 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 REFERRING PROVIDER/CLINIC LOCATION/FAX #: Appeals Court Associate Justice Role and Specialty Contact Info Address Start End Comments Isela Esposito MD INDUSTRIAL SAFETY AND HEALTH TECHNICIAN (Obstetrics and Gynecology) [address] [facility] [address] 06/22/2024 - - Primary MD approves scheduling of recommended ultrasounds/testing: Yes Please schedule the following: [x] Craig [] Multiples: [] Consult [x] Ultrasound: - Level 2 (including echo) - 60 minutes [] Lab: [] Genetic Counseling [] Before [] After []15 [] 30 []45 []NT []CVS []Amnio [] BMI > 40 [] Deputy Sheriff K9 Handler - Language [] [place] Insurance: Location Specialty Days Any [facility] Clinic [] In-person [] Virtual [] Either N/A Comments: RN: Caren Guzman RN Sand Molder: RICHIE: /Provider: Date:06/22/2024 Urgency: at level II time []Can be sooner [] Can be split Dipesh Paz : 2000 REFERRING PROVIDER: Isela Esposito MD, [facility], Primary provider approves scheduling of recommended ultrasounds/testing: Yes [facility] ULTRASOUND/TESTING PATIENT Support person name: ULTRASOUND TYPE: level II REASON FOR VISIT: NIPS: 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 STEPHANIE: 11/23/24 Early US: Date: 05/04/24 GA: 11w2d STEPHANIE: 11/21/24 PrePregnancy Weight: 16lb Height: 5'3 BMI: 28 PLANS & FUTURE APPOINTMENTS: ULTRASOUND/GROWTH PLAN: - Through: - Growth: Next TESTING PLAN: - Testing: Through DELIVERY PLAN: - Scheduled delivery: - Preferred delivery location: PRIMARY DIAGNOSIS: 23 y.o. 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 Normal? Blood type: O Rh Positive Antibody screen: Negative Non-[facility] labs need to be entered in EPIC? 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 ASA indicated-High Risk for preeclampsia: yes Genetic screening: yes BMI: 29.23 25-29.9 recommended weight gain 15-25# Level II FAS at [facility] indicated: no Smoker: no HSV: yes, cold sores Ultrasound: 05/04/24 Flu vaccine: did not have COVID-19 vaccine: x 2 COVID-19 booster: x 1, last in 07/11. 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 Overview (02/03/2022): Maternal microarray (blood)/-10/12: pattern c/w XXX Karyotype Head injury 11/05/2018 Lactose intolerance 10/28/2017 Myopia of both eyes 11/20/2015 Vision disturbance Estimated Date of Delivery Comme nts Yes 11/21/2024 Based on Ultraso und Resolved Problems Problem Noted Date Diagnosed Date Resolved Date Insulin controlled gestation al diabetes mellitus (GDM) in third trimester 05/19/20222022 Diabetes in 01/01/20222021 Encounter for supervision of normal first , unspecified trimester 11/16/2021 023 Overview (01/11/2022): Gestational age at time of intake: 10w1d Patient preferred name: Dipesh Bearden Hx: Migraines; Patient traveled to [place] from 09/26/21-09/30/21 with out her partner, she had no mosquito bites Concerns this : Panorama and NIPS Show baby is female XXX OB Hx: OB History Para Term AB Living 1 0 0 0 0 0 SAB IAB Ectopic Multiple Live Births 0 0 0 0 0 # Outcome Date GA Lbr Colton/2nd Weight Sex Delivery Anes PTL Lv 1 Current Early GTT indicated: no Hx of thyroid disorder: no. ASA indicated-High Risk for preeclampsia: no Level 2 FAS indicated (pre-preg BMI>30): no Genetic screening: Options reviewed with patient. Codes for US and Lab sent to patient as well as the phone number for the Rosana Cali so that insurance coverage can be verified. Patient will discuss with provider at IOB. BMI:24.89 Recommended wt gain: 25-35 # Smoker: no HSV: no Ultrasound: Dating and confirmation of cardiac activity ordered Flu vaccine: COVID-19 vaccine: Yes-Pfizer COVID-19 booster: (if applicable) Pertussis Vaccine: Peds: Domestic violence screen: Assessed-no concerns Partners name (if applicable): Alhaji uterine contractions in third trimester, antepartum 05/27/2023 Encounter for induction of labor 05/27/2023 Encounters Date Type Department Care Team Description 09/14/2024 Telephone [facility] [address] [place] [address] Isela Esposito MD Form (DISREGARD, DUPLICATE ENCOUNTER. CLOSING. ) 09/13/2024 Telephone [facility] [address] [facility] [address] [place] [address] Eliza Molina, BENCH JEWELER Appointment 07/31/2024 Telephone [facility] [address] [place] [address] Isela Esposito MD Form 07/27/2024 10:00 AM CDT OB Encounter [facility] [address] [facility] [address] [place] [address] Iesla Esposito MD Care (23w2d STEPHANIE 11/21/2024); Nurse/Clinic Staff Only (Having lots of pain on both hips, R leg numbness at night while sleeping on that side.) 07/27/2024 Telephone [facility] [address] [place] [address] Isela Esposito MD Form (FMLA) 07/27/2024 Travel 07/02/2024 Telephone [facility] [address] [place] [address] Isela Esposito MD Questions from Last 3 Months Immunizations Name Administration Dates Next Due DTaP 07/16/2008, 7,06/17/2003,05/31,03/26/2002,02/14/2002 HIB PRP-D (ProHIBIT) 02/14/2002 HIB PRP-T (ActHIB,Hiberix) 06/17/2003,,03/26/2002,02/14 Hepatitis A (Peds) 07/16/2008,07/11/2007, 004 Hepatitis A, Unspecified 07/11/2007,11/28/2003 Hepatitis B (Peds) 05/31/2002,02/14/2002, 002 Human Papilloma Virus Vaccine 11/07/2013 ,07/09/2013,03/30/2013,03/30 Inactivated Polio Vaccine 07/16/2008,,05/31/2002,03/26,02/14/2002 Influenza, IIV3 (Age >=3 years) 10/31/2006 Influenza, IIV4 10/01/2016 MENINGOCOCCAL VACCINE 2 VIAL 2MO-55YO (MENVEO) 01/26/2019,03/30/2003 MMR 08/16/2008,07/11/2007,06/17/2003 Meningococcal Vaccine (Menactra) 12/21/2016 Pneumococcal conj 7-Valent (Prevnar 7) 3,05/31/2002,02/14/2002 Tdap 03/22/2022,03/30/2013 Varicella Vaccine 07/16/2008,07/11/2007,06/17/20 03 Family History Medical History Relation Name Comments No Known Problems Father Asthma Half-Brother No Known Problems Half-Sister 1 No Known Problems Half-Sister 2 No Known Problems Maternal Grandfather No Known Problems Maternal Grandmother Good Health Mother Unknown Mother No Known Problems Paternal Grandfather No Known Problems Paternal Grandmother Relation Name Status Comments Father Half-Brother Alive Half-Sister 1 Alive Half-Sister 2 Alive Maternal Grandfather Alive Maternal Grandmother Alive Mother Alive Paternal Grandfather Alive Paternal Grandmother Alive Son Triston Alive Social History Tobacco Use Types Packs/Day Years Used Date Smoking Tobacco: Never Smokeless Tobacco: Never Alcohol Use Standard Drinks/Week Comments Not Currently 0 (1 standard drink = 0.6 oz pur e alcohol) Currently PHQ-2 Answer Date Recorded PHQ-2 TOTAL SCORE 0 05/11/2024 Social Connections Answer Date Recorded Do you often feel lonely or isolated from those around you? 0 06/04/2024 Financial Resource Strain Answer Date R ecorded Difficulty of Paying Living Expenses 3 06/04/2024 Difficulty of Paying Living Expenses Not on file 06/04/2024 Food Insecurity Answer Date Recorded Do you worry your food will run out before you are able to buy more? 1 06/04/2024 Transportation Needs Answer Date Record ed Does lack of transportation keep you from medica l appointments? 1 06/04/2024 Does lack of transportation keep you from work, meetings or getting things that you need? 1 06/04/2024 Housing Stability Answer Date Recorded What is your housing situation today? 1 06/04/2024 Estimated Date of Delivery Comme nts Yes 11/21/2024 Based on Ultraso und Sex and Gender Information Value Date Recorded Sex Assigned at Not on file Gender Identity Not on file Sexual Orientation Not on file Obstetrics History Para Term AB IAB SAB Ectopic Multiple Livin g Live Births 3 1 1 0 1 1 0 0 0 1 1 Date Outcome GA Total Labor Labor/2nd/3rd Weight Sex Type Anes PTL Leida A1 A5 Name Clin 2020 IAB ELECTI VE AB Demis e 2021 Term 39w 1d 11h 05m 10h 00m/0h 57m/0h 08m 3.75 kg (8 lb 4.3 oz) M Vag Epidur al Livin g 8 9 VIV PAZ, Ruchi carter MD Complications:None,Cervical laceration, initial encounter Delivery Location:Hospital ( [address] L[facility]D TRIAGE) Current Summary Episode Dates Number of Fetuses Estimated Date of Delivery 04/27/2024 - Present (10/01/2024) 1 11/21/2024 (set by Olegario Esposito MD on 05/11/2024 based on Ultrasound on 05/04/2024) Dating Summary Based On STEPHANIE GA Diff Last Menstrual Period on 02/17/2024 (Exact Date) 11/23/2024 -2d Ultrasound on 05/04/2024 11/21/2024 Working GA:11w2d Alternate STEPHANIE Entry 11/23/2024 -2d Overview and Plan :Craig Support person:Anshul , partner Vitals Pregravid Weight Height TWG (As of 10/01/2024) Pregrav id BMI 1.606 m (5' 3.23) Date GA Fund Present FHR Mvmt BP Weight Edema Alb Glu Ket Dil/ Eff/Sta 4 14w2d Inpatient data not displayed here. See encounter summary. 4 18w6d Inpatient data not displayed here. See encounter summary. Notes Progress Notes - OB Encounte r - 07/27/2024 - GA:23w2d 07/27/2024 - 23w2d - Yaneli Esposito MD Normal level II Right sided hip pain. Already using a maternity support belt. PT referral done. RTC 4 weeks Isela Esposito MD Progress Notes - OB Encounte r - 06/22/2024 - GA:18w2d 06/22/2024 - 18w2d - Yaneli Esposito MD NIPT - monosomy X She herself has XXX.-and so will always have abnormal NIPT result, however still warrents additional evaluation. Had GC done but level II was not scheduled. Referral made of level II. Once that's scheduled she can cancel the basic FAS u/s RTC 4 weeks Isela Esposito MD Progress Notes - Hospital En counter - 05/25/2024 - GA:14w2d 05/25/2024 - 14w2d - Davy Briceño, MS, [facility] / Clinic Note Genetic Counseling RE: Dipesh Jus Gregory : 2000 MR: [id number] Partner name: not present Referred By: Isela Esposito MD Indication for Visit: Atypical finding on sex chromosomes. (Panorma) History: Estimated Date of Delivery: 11/21/24 by LMP GAA: 15w0d Complete genetic screening/testing: Atypical finding on sex chromosomes. Other conditions resulted as low risk. fraction: 7.0% Medications: None noted Exposures/infections: None noted Family History: A formal family history was not collected due to time constraints. Risk Assessment: There is a 3-5% background risk for defects and a 1-2% background risk for intellectual disability and/or developmental delay for any given . Reviewed the no results for sex chromosome aneuploidy due to atypical finding due to suspected maternal finding. Suspected finding outside the scope of the test involving the sex chromosomes, which may include, but is not limited to maternal chromosome abnormality, mosaicism, chromosome abnormality, or normal variation. Repeat cell free DNA testing is not recommended. Rad had MicroArray analysis on her blood in her last due to the same results from cell free DNA. The results were consistent with a gain of an X chromosome or XXX syndrome. This condition is sporadic and is the result of an extra X chromosome having been passed by the egg or the sperm at the time of conception. This condition affects approximately 1 in 1200 females. It was explained to Rad that the presence of the extra X chromosome could affect this child's development, however, this chromosome change is not associated with an increased risk for defects or mental retardation. Girls with 47, XXX , can have speech delay, learning problems and delays in social skills, and possibly reduced fertility as adults. Often, girls and women with 47,XXX are taller than their siblings. Some girls or women with this condition may have very minimal findings or may have several of the features mentioned above; the clinical picture is highly variable. As Dipesh herself has XXX syndrome, atypical results for sex chromosomes on cell free DNA are expected with each . Discussion: Dipesh presented today for genetic counseling regarding atypical finding on sex chromosomes on cell free DNA screening. I met with her in her previous for the same indication and maternal blood chromosome analysis showed that Dipesh herself has XXX syndrome. We discussed that this is the explanation for the cell free DNA screening results and the same result is expected in each . I had attempted to contact the patient multiple times in the previous to review her blood chromosome results but had not heard back from her. Results were reviewed with her at the time of her level 2 ultrasound. She reports she had been aware of the results as her mother had seen the laboratory analysis. While the risk of having a child with an extra X chromosome is not significantly increased, sex chromosome abnormality is still a possibility. Typically individuals with an extra X chromosome (XXX in females and X XY in males) do not have a significant increased risk of structural abnormalities, level 2 ultrasound is indicated.The patient verbalized her understanding of our consult today and has no further questions at this time. Plan: Dipesh elected to proceed with the level II ultrasound after today? s consult. Someone from our scheduling team will reach out to the patient to schedule that appointment. Thank you for allowing us to participate in your patient's care. Please do not hesitate to contact me with any additional questions or concerns. Sincerely, Jay Briceño MS, [facility] Licensed Genetic Counselor Total time: 45 minutes in person Virtual Visit: As the provider for this virtual visit, I attest that I introduced myself to the patient, provided my credentials, disclosed my location, and determined that, based on a review of the patients chart and/or a discussion with members of the patient's treatment team, telemedicine via a real-time, two-way, interactive audio and video platform is an appropriate and effective means of providing this service. The patient and I mutually agree that this visit is appropriate for telemedicine as well. Patient location (originating site [facility] [place], [place] Provider location (distant site [facility]): [place], [place] Video/Phone start time (include am/pm designation): 8:00 AM Video/Phone end time (include am/pm designation): 8:45 Am [facility] [address] [place] [address] Progress Notes - OB Encounte r - 05/11/2024 - GA:12w2d 05/11/2024 - 12w2d - Yaneli Esposito MD FIRST OB VISIT HPI: Dipesh Paz is a 23 y.o. female at 12w2d with craig intrauterine here today for a initial OB exam. Estimated due date is Estimated Date of Delivery: 11/21/24 based on LMP. Nausea/Vomiting: yes, mild Breast tenderness: yes Fatigue: yes Bleeding: no Taking vitamins: yes Options of sequential screen, cell-free DNA testing, amniocentesis were discussed. Patient is interested in pursuing testing. AMA: no Previous : no OB History Para Term AB Living 3 1 1 0 1 1 SAB IAB Ectopic Multiple Live Births 0 1 0 0 1 # Outcome Date GA Lbr Colton/2nd Weight Sex Type Anes PTL Lv 3 Current 2 Term 06/07/22 39w1d 10:00 / 00:57 3.75 kg (8 lb 4.3 oz) M Vag EPIDURAL LEIDA Complications: Cervical laceration, initial encounter 1 2020 ELECTIVE AB FD Past Medical History: . Date Concussion Migraine headache Varicella XXX syndrome Past Surgical History: . Laterality Date WISDOM TEETH EXTRACTION Family History Problem Relation Age of Onset Good Health Mother Unknown Mother No Known Problems Father No Known Problems Half-Sister No Known Problems Half-Sister Asthma Half-Brother No Known Problems Maternal Grandmother No Known Problems Maternal Grandfather No Known Problems Paternal Grandmother No Known Problems Paternal Grandfather Social History Tobacco Use Smoking status: Never Smokeless tobacco: Never Substance Use Topics Alcohol use: Not Currently Comment: Currently Current Outpatient Medications Medication Sig acetaminophen (TYLENOL) 325 mg tablet Take 1-2 Tablets (325-650 mg) by mouth every 4 hours if needed (mild pain). Max acetaminophen dose: 4000mg in 24 hrs. aspirin (ECOTRIN) 81 mg enteric coated tablet Take 81 mg by mouth once daily. 25/iron fum/folic/dha (-1 ORAL) Take by mouth. No current facility-administered medications for this visit. Medications have been reviewed by me and are current to the best of my knowledge and ability. ALLERGIES Cat dander, Lactose, and Nickel MENTAL HEALTH HISTORY History of psychiatric diagnosis: None Current mental health provider: not applicable Currently taking any psychiatric medications? Not Applicable INFECTION HISTORY Current Drug Use: none Relevant infection history from OB Questionnaire: none REVIEW OF SYSTEMS Comprehensive ROS complete and negative other than noted in HPI and on OB Questionnaire. PHYSICAL EXAM BP 108/76 (Cuff Site: Right Arm, Position: Sitting, Cuff Size: Adult Regular) Pulse 78 Ht 1.606 m (5' 3.23) Wt 71.1 kg (156 lb 12.8 oz) LMP 02/17/2024 (Exact Date) BMI 27.58 kg/m?? General Appearance: Alert, appropriate appearance for age. No acute distress. HEENT Exam: Grossly normal. Neck/Thyroid Exam: Supple, no masses, nodes or enlargement. Lungs: Clear to auscultation bilaterally. Breast Exam: Not indicated. Cardiovascular Exam: Regular rate and rhythm. S1, S2, no murmur. Abd: Soft, non-tender, no masses or organomegaly. Skin: no rashes or lesions. Lymphatics: no nodes palpable. Psychiatric Exam: Alert and oriented x 3, appropriate affect. Pelvic Exam Vulva and vagina appear normal. Cervix closed, long. Uterus: 12 wk sz, nontender. Adnexa: not palpable. Pelvimetry: Adequate pelvis. Pap smear obtained. ASSESSMENT/PLAN 23 y.o. at 12w2d with craig intrauterine . ICD-10-CM 1. Encounter for supervision of normal first in first trimester Z34.01 DNA SCREEN SEND OUT COMP METABOLIC PANEL PROTEIN/CREAT RATIO,URINE US OB BASIC ANATOMY SCREEN SINGLE TA 2. Supervision of other normal , antepartum Z34.80 GC CHLAMYDIA TRACH PROBE 3. Cervical cancer screening Z12.4 QUALITY AND RELIABILITY ENGINEER THIN PREP PAP SCREEN IMAGED Satisfactory exam. Demonstrates appropriate and health-seeking behaviors toward her . Verbalizes good understanding of care schedule and the importance of coming to each visit as scheduled. Start/continue vitamins. Reviewed labs. She was encouraged to call the office with any questions or concerns. Body mass index is 27.58 kg/m??. Diet and expected weight gain discussed with patient. DEPRESSION SCREEN PHQ Score and Severity Date of PHQ exam: 05/11/24 PHQ-2 TOTAL SCORE: 0 PHQ-9 TOTAL SCORE: 5 Depression Severity Level: mild Intervention: Not Depressed GDMA 2 with Previous - early glucose today Preeclampsia with 1st IOL at 39 weeks - low dose ASA already started H/o cervical laceration with last - healed well. BMI 27 NIPT today with gender. FAS ordered. RTC 4 weeks Isela Esposito MD Progress Notes - Phone OB En counter - 04/27/2024 - GA:10w2d 04/27/2024 - 10w2d - Rodger Rodriguez RN Patient to see Dr. Esposito at 12w0d Daytime Ph#: OK for detailed msg: yes * Beta HCG Drawn: not done * US: 05/04/24 * Medical Hx: Triple X Syndrome, migraines, VAG x 1, pre-eclampsia, GDM-insulin, IAB x 1, chlamydia Early GTT indicated: yes If yes: BMI >25, higher risk race/ethnicity; history of GDM * Patients LMP: 02/17/24 - Regular * STEPHANIE: 11/23/24 * Gestational Age @ Intake Visit: 10w0d * Sequential Screen, Integrated, First trimester screen, Panorama Testing, Cystic Fibrosis Screening pamphlet/info reviewed. Pt instructed on timing of test, scheduling information and advised to verify coverage with insurance carrier prior to testing. Patient will call if testing is desired. Discussed follow-up steps if patient were to have a positive screen. Understanding verbalized. * OB visit summary/clinic info, nausea/vomiting tips, safe OTC medications in and frequently asked questions material reviewed with patient. * Smoking Cessation information given to patient: N/A * Denies History of (+) test/culture MDRO/ Multi drug resistant organisms. This represents: VRE, MRSA & ESBL Domestic Violence Screen: reports a safe relationship SYMPTOMS: Missed period My Chart: active and accessible Flu Vaccine: did not have COVID-19 Vaccine: x 2, last in 07/11. Denies COVID-19 infection in current to date Rodger Rodriguez RN Women? s Health Triage ........ 04/27/2024 1:31 PM Last Filed Vital Signs Vital Sign Reading Time Taken Comments Blood Pressure 104/64 07/27/2024 10:00 AM CDT Pulse 70 07/27/2024 10:00 AM CDT Temperature 36.9 ??C (98.5 ??F) 06/04/2024 9:01 AM CD T Respiratory Rate 18 06/04/2024 9:01 AM CDT Oxygen Saturation 97% 06/04/2024 9:01 AM CDT Inhaled Oxygen Concentration - - Weight 75.8 kg (167 lb) 07/27/2024 10:00 AM CDT Height 160.6 cm (5' 3.23) 05/11/2024 1:41 PM CD T Body Mass Index 29.37 05/11/2024 1:41 PM CDT Plan of Treatment Upcoming Encounters Date Type Department Care Team (Late st Contact Info) Description 11/21/2024 Hospital Encounter [facility] [address] [place] [address] Bernabe Gould MD [address] [place] [address] Health Maintenance Due Date Last Done Comments COVID-19 vaccine series ( season) 2024 07/15/2021, 06/24/2021 Influenza for age 9-49 07/22/2024 10/01/2016, 2005 RSV vaccine for adults or (1 - Risk 1-dose series) 09/26/2024 BMI (ht and wt on same day) for age 18+ 05/11/2025 05/11/2024, 04/27/2024, 06/29/2023, Additional history exists Chlamydia for age 16-24 05/11/2025 05/11/20 24, 06/29/2023, 05/27/2023, Additional history exists Depression screening for age 12+ 05/11/2025 05/11/2024, 08/18/2022, 03/26/2022, Additional history exists Pap test for age 21-65 05/11/2027 05/11/2024 Tetanus booster 03/22/2032 03/22/2022, 03/30/2013 Pneumococcal series for age 6-64 Aged Out 06/17/2003, 05/31/2002, 02/14/2002 No longer eligible based on patient's age to complete this topic HPV series for age 9-26 Completed 11/07/20 13, 11/07/2013 (Completed outside of [facility]), 11/02/2013 (Completed outside of [facility]), Additional history exists Tdap Completed 03/22/2022, 03/30/2013 HIV for age 15-65 Completed 05/11/2024, , 11/16/2018 Hepatitis C screening for age 18-79 Completed 05/11/2024, 11/30/2021 Procedures Procedure Name Priority Date/Time Associated Diagnosis Comments ANTI HIV 1/2 Routine 05/11/2024 2:25 PM CDT Supervision of other normal , antepartum ANTI HCV Routine 05/11/2024 2:25 PM CDT Supervision of other normal , antepartum GC CHLAMYDIA TRACH PROBE Routine 05/11/2024 2:00 PM CDT Supervision of other normal , antepartum QUALITY AND RELIABILITY ENGINEER THIN PREP PAP SCREEN IMAGED Routine 05/11/2024 2:00 PM CDT Cervical cancer screening from Last 3 Months or Most Recently Relevant to Health Maintenance Results * ANTI HCV (05/11/2024 2:25 PM CDT) HEPATITIS C ANTIBODY Non-Reacti ve Non-React gerardo 05/11/2024 7:03 PM CDT [facility] [employer] [facility] Comment:Please note, per www .CDC.gov: If a patient is known to be at high risk of HCV infection, or is symptomatic, and the physician's suspicion of HCV infection is high, HCV RNA testing is often employed and is of diagnostic value, even after an initial negative anti-HCV test result. Blood BLOOD SPECIMEN / Unknown Venipuncture / Unknown 05/11/2024 2:25 PM CDT 05/11/2024 2:28 PM CDT Isela Esposito MD [facility] [address] [place] [address], * ANTI HIV 1/2 (05/11/2024 2:25 PM CDT) HIV-1/HIV-2 SCREEN Non-Reacti ve Non-Reacti ve 05/11/2024 7:14 PM CDT [facility] Comment:HIV-1 p24 and HIV-1/ HIV-2 Ab Not Detected. Blood BLOOD SPECIMEN / Unknown Venipuncture / Unknown 05/11/2024 2:25 PM CDT 05/11/2024 2:28 PM CDT Isela Esposito MD SEND OUTS [facility] [address] [place] [address], * QUALITY AND RELIABILITY ENGINEER THIN PREP PAP SCREEN IMAGED (05/11/2024 2:00 PM CDT) Case Report Gynecologic Cytology Report ? Case: [id number] ? Authorizing Provider: ??Isela Esposito MD ?Collected: ? 05/11/2024 1400 ? [facility] ? Received: ?05/11/2024 1434 ? [facility] ? First Screen: ?Monique Hale ? Specimen: ?QUALITY AND RELIABILITY ENGINEER ThinPrep Vial Screening, Cervical ? 05/22/2024 11:21 AM CDT [facility] INTERPRETATION/ RESULT NEGATIVE FOR INTRAEPITHELIAL LESION OR MALIGNANCY (NIL) (none) 05/22/2024 11:21 AM CDT [facility] IMEN ADEQUACY Satisfactory for evaluation No endocervical component seen in a patient 05/22/2024 11:21 AM CDT [facility] Date of LMP 02/17/2024 05/22/2024 11:21 AM CDT [facility] Last Pap Date NA 05/22/2024 11:21 AM CDT [facility] Last Pap Result First Pap/Unknown 11:21 AM CDT [facility] Abnormal Pap or [place] Bx in last 5 years No 05/22/2024 11:21 AM CDT [facility] Menstrual Status 05/22/2024 11:21 AM CDT [facility] [place] Bx Done Today No 05/22/2024 11:21 AM [facility] Additional Information None given 05/22/2024 11:21 AM T [facility] Comment: Cytology is screened at [facility] - [address], [place] [address] and [facility] - [address] [place] [address] and [facility] - [address] [facility] [place] [address] Interpreted at [facility] - [address], [place] [address] Automated Review Successful 05/22/2024 11:21 AM CDT [facility] Comment:Specimen processed s uccessfully by automated construction consultant device, ThinPrep Imaging System, [employer] Note The pap test is a screening technique, not a diagnostic procedure. It is used primarily to screen for squamous cancers and precursor lesions. Published studies have shown that it is subject to both false negative and false positive results. The pap test should not be used as the sole means to diagnose or exclude pre-malignant and malignant lesions. 05/22/2024 11:21 AM CDT [facility] Other (Cervical) Non-Blood / Unknown 05/11/2024 2:00 PM CDT 05/11/2024 2:34 PM CDT Isela Esposito MD PATHOLOGY/CYTOLOGY Performing Organization Address City/[facility]/ZIP Co de Phone Number [facility] [address] [place] [phone], * GC CHLAMYDIA TRACH PROBE (05/11/2024 2:00 PM CDT) CHLAMYDIA PROBE Negative 5:46 PM CDT [facility] N GONORRHOEAE PROBE Negative 05/12/2024 5:46 PM CDT [facility] Other VAGINAL SWAB / Unknown Non-Blood / Unknown 05/11/2024 2:00 PM CDT 05/11/2024 2:34 PM CDT Isela Esposito MD MICROBIOLOGY Performing Organization Address City/[facility]/ZIP Co de Phone Number [facility] [address] [place] [address], from Last 3 Months or Most Recently Relevant to Health Maintenance Advance Directives * Full Code (Latest Code Status on File) Date Activated Date Inactivated Comments 06/06/2022 8:40 PM 06/10/2022 1:23 PM Question Answer Comments Code Status Discussion: Reviewed Preferences Care Teams Appeals Court Associate Justice Relationship Specialty Start Date End Date Md [address] [place] [address] PCP - General 05/12/22 Pcp, No . 11/18/15 Isela Esposito MD [address] [place] [address] INDUSTRIAL SAFETY AND HEALTH TECHNICIAN Obstetrics and Gynecology 06/22/24
--- OUTSIDE RECORDS SUMMARY | 2024-10-01 08:36 | XMS_ITS | Clinical Summary ---
Author Organization [facility] Address [address] [place] [address]. [place] [address] Care Team Providers Care Picker Tender Name Role Phone Clinic, Gr[facility] Tubbs Primary Care Provider Paulina Owusu APRN LEAD SQL DEVELOPER Unavailable [phone] Laila Ramirez MD Unavailable [phone] Allergies No known active allergies Medications triamcinolone [...] ,07/11/2007,05/31/2002,2001,02/14/2002 TDAP Vaccine (Adacel) 03/30/2013 Varicella 07/16/2008,07/11/2007,06/17/2003 Family History Medical History Relation Comments Family History Negative Mother Relation Status Comments Mother Social History Tobacco Use Types Packs/Day Years [...] on file Legal Sex Female 4:43 AM DIAMOND CUTTER Gender Identity Not on file Sexual Orientation Not on file Last Filed Vital Signs Vital Sign Reading Time Taken Comments Blood Pressure 109/59 01/28/2022 9:07 AM DIAMOND CUTTER Pulse 72 10/09/2019 10:10 AM DIAMOND CUTTER Temperature 37.2 ??C (98.9 ??F) 01/28/2022 9:07 AM CS T Respiratory Rate 18 01/28/2022 9:07 AM DIAMOND CUTTER Oxygen Saturation 98% 01/28/2022 9:07 AM DIAMOND CUTTER Inhaled Oxygen Concentration - - Weight 70.8 kg (156 lb) 01/28/2022 6:43 AM DIAMOND CUTTER Height 160 cm (5' 3) 01/28/2022 6:43 AM DIAMOND CUTTER Body Mass Index 27.63 01/28/2022 6:43 AM DIAMOND CUTTER Plan of Treatment Health Maintenance Due Date Last Done Comments [place] [facility]ING 2001 ANNUAL REVIEW OF HM ORDERS 2001 YEARLY PREVENTIVE VISIT 07/11/2008 07/11/2007, 06/07 HEPATITIS C SCREENING 2019 PAP 2022 DTAP/TDAP/TD IMMUNIZATION (7 - Td or Tdap) 03/30/2023 03/30/2013, 07/16/2008, 07/11/2007, Additional history exists PHQ-2 (once per calendar year) 2023 11/28/2018 COVID-19 Vaccine (3 - season) 2024 07/15/2021, 06/24/2021 INFLUENZA VACCINE (#1) 2024 10/01/2016, 2005 RSV VACCINE (1 - 1-dose 75+ series) 2076 HEPATITIS B IMMUNIZATION Completed 002, 02/14/2002, 2001 Pneumococcal Vaccine: Pediatrics (0 to 5 Years) and At-Risk Patients (6 to 64 Years) Aged Out 06/17/2003, 05/31/2002, 02/14/2002 No longer eligible based on patient's age to complete this topic HPV IMMUNIZATION Completed 11/07/2013, , 03/30/2013, Additional history exists MENINGITIS IMMUNIZATION Completed 01/27/20 19, 12/21/2016, 03/30/2003 CHLAMYDIA SCREENING Discontinued 11/30/2021 HIV SCREENING Completed 11/30/2021 RSV MONOCLONAL ANTIBODY Aged Out No l onger eligible based on patient's age to complete this topic Procedures Procedure Name Priority Date/Time Associated Diagnosis Comments HIV 1&2 ANTIBODY (EXTERNAL RESULT) Routine 11/30/2021 4:35 PM DIAMOND CUTTER from Last 3 Months or Most Recently Relevant to Health Maintenance Results * HIV-1 Antibody (External Result) (11/30/2021 4:35 PM DIAMOND CUTTER) HIV 1&2 Antibody (External) Nonreactive Nonreactive EXTERNAL LAB 11/30/2021 4:35 PM DIAMOND CUTTER us Patient Reported LAB - HIM EXTERNAL RESULT Final Result EXTERNAL LAB External Lab from Last 3 Months or Most Recently Relevant to Health Maintenance Insurance [facility] Care Teams Picker Tender Relationship Specialty Start Date End Date [facility], [address] [address] PCP - General 11/04/18 Paulina Owusu APRN LEAD SQL DEVELOPER [address] [place] [address] [address] [place], [place] [address] Nurse Practitioner Nurse Practitioner - Pediatrics 08/28/19 Laila Ramirez MD [address] [place] [address] Pediatric Neurology 08/28/19
--- NOTE | 2024-10-01 09:06 | ED.NURSE ---
tones performed on pt, tones of 147 bpm heard.
[2024-10-01 09:07] LABS: Appearance Urine Slightly Cloudy (Clear); Bilirubin Urine Negative (Negative); Blood Urine Negative (Negative); Color Urine Yellow (Yellow); Glucose Urine 3+ (Negative); Ketones Urine Trace (Negative); Leukocyte Esterase Urine Negative (Negative); Nitrite Urine Negative (Negative); Protein Urine Negative (Negative)
[2024-10-01 09:11] LABS: Basophils Absolute Auto 0.03 K/uL (0.00-0.30); Basophils Percent Auto 0.4 % (0.0-3.0); Eosinophils Absolute Auto 0.28 K/uL (0.00-0.50); Hematocrit 31.8 % (33.0-51.0); Immature Granulocytes Abs Auto 0.11 K/uL (0.00-0.30); Immature Granulocytes Pct Auto 1.6 %; Lymphocytes Absolute Auto 1.81 K/uL (0.90-2.90); Lymphocytes Percent Auto 25.7 % (20-44); Mean Corpuscular HGB Conc 31 gm/dL (32-36); Mean Corpuscular Hemoglobin 29 pg (26-34); Mean Corpuscular Volume 93 fL (80-100); Monocytes Percent Auto 8.1 % (0.0-11.0); Neutrophils Absolute Auto 4.24 K/uL (1.7-7.0); Neutrophils Percent Auto 60.2 % (42.0-72.0); Platelet Count* 198 K/uL (140-440); Red Blood Count 3.41 m/uL (4.00-5.20); White Blood Count* 7.04 K/uL (4.50-11.00)
[2024-10-01 09:16] LABS: Bacteria Urine Moderate; RBC Urine 0-2 (0-2); Squamous Epithelial Cell Urine Few (None-Few)
[2024-10-01 09:17] LABS: Slide Review Reflex No
[2024-10-01 09:22] LABS: Albumin* 3.2 g/dL (3.3-5.0); Chloride* 106 mmol/L (96-114); Potassium* 3.4 mmol/L (3.6-5.1); Sodium* 131 mmol/L (135-149)
[2024-10-01 09:24] LABS: Anion Gap 7 mEq/L (7-15); Carbon Dioxide* 18 mmol/L (20-32); Creatinine* 0.3 mg/dL (0.5-1.5); Est. Creatinine Clearance* 243.32; Estimated Glomerular Filt Rate 154 ml/min
[2024-10-01 09:25] LABS: Alanine Aminotransferase* 12 U/L (4-35); Alkaline Phosphatase* 179 U/L (40-150); Aspartate Amino Transferase* 16 U/L (12-35); Blood Urea Nitrogen* 5 mg/dL (5-24); Glucose* 174 mg/dL (60-115)
[2024-10-01 09:26] LABS: Calcium* 8.6 mg/dL (8.4-10.6)
[2024-10-01 09:26] LABS: Creatinine Urine 72.8 mg/dL; Protein Creatinine Ratio Urine 0.07 (0-0.19); Total Protein Urine < 5 mg/dL
[2024-10-01 09:27] LABS: Bilirubin Total* < 0.1 mg/dL (0.1-1.5)
[2024-10-01 09:28] LABS: D Dimer Quantitative* 1.89 ug/ml (0.00-0.50)
[2024-10-01] MEDS: ACETAMINOPHEN 500 MG TABLET 1000 MG PO (09:56)
[2024-10-01] MEDS: CALCIUM CARBONATE 500 MG CHEW PO (10:30)
[2024-10-01 11:25] LABS: PCR FLU A Negative PCR FLU A (Negative); PCR FLU B Negative PCR FLU B (Negative); PCR RSV Negative PCR RSV (Negative); SARS PCR* Negative SARS-CoV-2 (Negative)
[2024-10-01] MEDS: FAMOTIDINE 20 MG TABLET PO (11:31)
== END 2024-10-01 11:44 | disposition home or self-care (01) ==
PROVIDERS: Emergency Provider Family Medicine; PCP Physician Assistant
DX: R07.9 Chest pain, unspecified (principal); K21.9 Gastro-esophageal reflux disease without esophagitis; R51.9 Headache, unspecified; Z3A.32 32 weeks gestation of pregnancy
CPT/HCPCS: 36415; 80053; 81001; 82565; 82570; 83735; 84156; 84450; 84460; 84484; 84520; 85025; 85027; 85379; 87086; 87631; 99284; 99285; A9270

== ENCOUNTER 2024-10-12 08:44 | Outpatient (CLI) | payer MEDICAID, SELFPAY ==
--- OUTSIDE RECORDS SUMMARY | 2024-10-12 08:48 | XMS_ITS | Clinical Summary ---
Author Organization [facility] Address [address] [place] [address]. [place] [address] Care Team Providers Care Back Seam Stitcher Name Role Phone Clinic, Gracy Tubbs Primary Care Provider Paulina Owusu APRN CARBURETOR EXPERT Unavailable [phone] Laila Ramirez MD Unavailable [phone] Allergies No known active allergies Medications triamcinolone [...] months,quad, PF 10/01/2016 MMR 08/16/2008,07/11/2007,06/17/2003 Meningococcal ACWY (Menactra ) 12/21/2016 Meningococcal ACWY (Menveo ) 01/26/2019,03/30/2003 Pneumococcal (PCV 7) 06/17/2003,05/31/2002,02/14 Poliovirus, inactivated (IPV) [...] on file Legal Sex Female 4:43 AM REGULATORY AFFAIRS MANAGER Gender Identity Not on file Sexual Orientation Not on file Last Filed Vital Signs Vital Sign Reading Time Taken Comments Blood Pressure 109/59 01/28/2022 9:07 AM REGULATORY AFFAIRS MANAGER Pulse 72 10/09/2019 10:10 AM REGULATORY AFFAIRS MANAGER Temperature 37.2 C (98.9 F) 01/28/2022 9:07 AM REGULATORY AFFAIRS MANAGER Respiratory Rate 18 01/28/2022 9:07 AM REGULATORY AFFAIRS MANAGER Oxygen Saturation 98% 01/28/2022 9:07 AM REGULATORY AFFAIRS MANAGER Inhaled Oxygen Concentration - - Weight 70.8 kg (156 lb) 01/28/2022 6:43 AM REGULATORY AFFAIRS MANAGER Height 160 cm (5' 3) 01/28/2022 6:43 AM REGULATORY AFFAIRS MANAGER Body Mass Index 27.63 01/28/2022 6:43 AM REGULATORY AFFAIRS MANAGER Plan of Treatment Health Maintenance Due Date [...] ANTIBODY (EXTERNAL RESULT) Routine 11/30/2021 4:35 PM REGULATORY AFFAIRS MANAGER from Last 3 Months or Most Recently Relevant to Health Maintenance Results * HIV-1 Antibody (External Result) (11/30/2021 4:35 PM REGULATORY AFFAIRS MANAGER) HIV 1&2 Antibody (External) Nonreactive Nonreactive EXTERNAL LAB 11/30/2021 4:35 PM REGULATORY AFFAIRS MANAGER us Patient Reported LAB - HIM EXTERNAL RESULT Final Result EXTERNAL LAB External Lab from Last 3 Months or Most Recently Relevant to Health [place] [id number] [facility] Care Teams Back Seam Stitcher Relationship Specialty Start Date End Date [facility], [address] [address] PCP - General 11/04/18 Paulina Owusu APRN CARBURETOR EXPERT [address] [place] [address] Nurse Practitioner Nurse Practitioner - Pediatrics 08/28/19 Laila Ramirez MD [address] [address] Pediatric Neurology 08/28/19
--- OUTSIDE RECORDS SUMMARY | 2024-10-12 08:48 | XMS_ITS | Referral Summary ---
Author Organization [facility] Address [address] [place], [place] [address] Care Team Providers Care Gastroenterology Teacher Name Role Phone Unknown, Primary Care Provider Melvi luu UnknownMd Unavailable Unavailable Social History Tobacco Use Types Packs/Day Years Used Date Smoking Tobacco: Never Assessed Comments Unknown Sex and Gender Information Value Date Recorded Sex Assigned at Not on file Legal Sex Female 9:56 AM CDT Gender Identity Not on file Sexual Orientation [...] CDT Plan of Treatment Not on file Insurance [facility] PMAP/[employer] Care Teams Gastroenterology Teacher Relationship Specialty Start Date End Date Unknown, NO ADDRESS/PHONE/FAX AFFILIATED PCP - General 08/07/21 Unknown, NO ADDRESS/PHONE/FAX AFFILIATED PCP - Primary Care Clinic 08/07/21
--- OUTSIDE RECORDS SUMMARY | 2024-10-12 08:48 | XMS_ITS | Clinical Summary ---
Author Organization [employer] [facility] Address [place], [place] [address] Care Team Providers Care Vascular Tech Name Role Phone Pcp, No Unavailable Unavailable Md Rolo Primary Care Provider [phone] Isela Esposito MD Unavailable [phone] Pati Tierney RN Unavailable [phone] Allergies Active Allergy Reactions Criticality Noted Date Comments Cat Dander Other - Describe In Comment Field 11/16/2021 Congested nose Eyes red Wheezing Lactose Diarrhea 11/16/2018 Nickel Edema 10/04/2019 Medications Medication Sig Dispensed Refills Start Date End Date Status acetaminophen (TYLENOL) 325 mg tabletIndication s:Vaginal delivery Take 1-2 Tablets (325-650 mg) by mouth every 4 hours if needed (mild pain). Max acetaminophen dose: 4000mg in 24 hrs. 100 Tablet 06/10/2022 Active aspirin (ECOTRIN) 81 mg enteric coated tablet Take 81 mg by mouth once daily. Active 25/iron fum/folic/dha (-1 ORAL) Take by mouth. Active Dexcom G7 Sensor for continuous blood glucose monitor (CGM)Indications :Gestational diabetes mellitus (GDM) requiring insulin To be used to read blood sugars, follow retail field representative directions. 6 Each 3 10/05/2024 Active Lantus Solostar U-100 Insulin 100 unit/mL (3 mL) penIndications:G estational diabetes mellitus (GDM) requiring insulin Inject 10 units subcutaneous before bedtime. Product desired: LANTUS SOLOSTAR 15 mL 3 10/05/2024 Active acetone, urine, test (Ketone Urine Test) stripIndications :Insulin controlled gestational diabetes mellitus (GDM) in third trimester Check urine in the morning as instructed up to one time per day 50 Each 1 10/05/2024 Active insulin aspart, U-100, (NovoLOG Flexpen U-100 Insulin) 100 unit/mL (3 mL) penIndications:G estational diabetes mellitus (GDM) requiring insulin inject 5 units prior to meals three times daily 15 mL 3 10/11/2024 Active pen needle, diabetic 32 gauge x 1/6 ndleIndications: Gestational diabetes mellitus (GDM) requiring insulin As directed. For injecting insulin four times daily 100 Each 3 10/11/2024 Active pen needle, diabetic 32 gauge x 1/6 ndleIndications: Gestational diabetes mellitus (GDM) requiring insulin As directed. 100 Each 3 10/05/2024 4 Discontinue d(Reorder (E-cancel not sent)) pen needle, diabetic 32 gauge x 1/6 ndleIndications: Gestational diabetes mellitus (GDM) requiring insulin As directed. For injecting insulin 1 time daily 100 Each 3 10/05/2024 4 Discontinue d(Reorder (E-cancel not sent)) Active Problems Problem Noted Date Diagnosed Date High-risk in second trimester 06/26/20 24 Abnormal genetic test during 4 MPP Supervision of high risk in first trimester 05/23/2024 Overview (06/22/2024): SRO MPP - Completed [x] Patient name: Dipesh Jenkins : 2000 Age: 23 y.o. 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 REFERRING PROVIDER/CLINIC LOCATION/FAX #: Vascular Tech Role and Specialty Contact Info Address Start End Comments Isela Esposito MD PLASTIC WELDING MACHINE OPERATOR (Obstetrics and Gynecology) [facility] [address] 06/22/2024 - - Primary MD approves scheduling of recommended ultrasounds/testing: Yes Please schedule the following: [x] Craig [] Multiples: [] Consult [x] Ultrasound: - Level 2 (including echo) - 60 minutes [] Lab: [] Genetic Counseling [] Before [] After []15 [] 30 []45 []NT []CVS []Amnio [] BMI > 40 [] Stationary Engineer - Language [] [place] Insurance: Location Specialty Days Any [facility] [] In-person [] Virtual [] Either N/A Comments: RN: Caren Guzman RN Smoke Jumper Supervisor: RICHIE: /Provider: Date:06/22/2024 Urgency: at level II time []Can be sooner [] Can be split Dipesh Jenkins : 2000 REFERRING PROVIDER: Isela Esposito MD, [facility], Primary provider approves scheduling of recommended ultrasounds/testing: Yes [facility] ULTRASOUND/TESTING PATIENT Support person name: ULTRASOUND [...] finding on sex chromosome 05/31/24 met with [facility] GC () CARE COORDINATION: PERTINENT LABS: Labs reviewed? [...] weight gain 15-25# Level II FAS at [facility] indicated: no Smoker: no HSV: yes, [...] time of intake: 10w1d Patient preferred name: TyreseTheranos Hx: Migraines; Patient traveled to [place] from 09/26/21-09/30/21 with out her partner, she [...] well as the phone number for the [employer] so that insurance coverage can be verified. [...] Encounters Date Type Department Care Team Description 10/11/2024 Telephone [facility] [address] [place] [address] Marv Hdz MD CGM sharing 10/09/2024 1:00 PM HIGH SCHOOL DIRECTOR Office Visit [facility] [address] [facility] [address] [place] [address] Gestational Diabetes (GDM Group Class- virtual) 10/08/2024 Telephone [facility] [address] [place] [address] Isela Esposito MD 33 weeks 10/05/2024 10:30 AM HIGH SCHOOL DIRECTOR Telemedicine [facility] [address] [place] [address] Marv Hdz MD Telehealth 10/03/2024 Nurse Triage [facility] Centralized Nurse Triage Pcp, No 09/14/2024 Telephone [facility] [address] [facility] [address] [place] [address] Isela Esposito MD Form (DISREGARD, DUPLICATE ENCOUNTER. CLOSING. ) 09/13/2024 Telephone [facility] [address] [facility] [address] [place] [address] Eliza Molina, TANK SHOP SUPERVISOR Appointment 07/31/2024 Telephone [facility] [address] [place] [address] Isela Esposito MD Form 07/27/2024 10:00 AM CDT OB Encounter [facility] [address] [facility] [address] [place] [address] Isela Esposito MD Care (23w2d STEPHANIE 11/21/2024); Nurse/Clinic Staff Only (Having lots of pain on both hips, R leg numbness at night while sleeping on that side.) 07/27/2024 Telephone [facility] [address] [place] [address] Isela Esposito MD Form ([facility]) 07/27/2024 Travel from Last 3 Months Immunizations Name Administration [...] Vag Epidur al Livin g 8 9 JACKSON ,BB GEORGES sanders, Ruchi carter MD Complications:None,Cervical laceration, initial encounter Delivery Location:Hospital ( [facility] [address]AGE) Current Summary Episode Dates Number of Fetuses Estimated Date of Delivery 04/27/2024 - Present (10/12/2024) 1 11/21/2024 (set by Olegario Esposito MD on 05/11/2024 based on Ultrasound on 05/04/2024) Dating Summary Based On STEPHANIE GA Diff Last Menstrual Period on 02/17/2024 (Exact Date) 11/23/2024 -2d Ultrasound on 05/04/2024 11/21/2024 Working GA:11w2d Alternate STEPHANIE Entry 11/23/2024 -2d Overview and Plan :Craig Support person:Anshul , partner Vitals Pregravid Weight Height TWG (As of 10/12/2024) Pregrav id BMI 1.606 m (5' 3.23) Date GA Fund Present FHR Mvmt BP Weight Edema Alb Glu Ket Dil/ Eff/Sta 4 14w2d Inpatient data not displayed here. See encounter summary. 4 18w6d Inpatient data not displayed here. See encounter summary. Notes Progress Notes - Office Visi t - 10/09/2024 - GA:33w6d 10/09/2024 - 33w6d - Yolis Lopez RD Diabetes Education Progress Note 1:1 Telehealth GDM Class Visit included: Nutrition Management, Nutrition/Carbohydrate counting, Physical Activity, Diabetes Medications, Glucose Monitoring, Target BGs, Hyperglycemia/Hypoglycemia, Psychosocial Adjustment, Gestational Diabetes Disease Process, and Risk Management SUBJECTIVE: Patient has Gestational Diabetes and is completing Initial GDM Virtual Class Virtual Visit: As the provider for this [...] means of providing this service. The patient was made aware of the risks associated with this virtual group care session including but not limited to equipment failure and privacy risks. The patient verbalized understanding and provided consent to continue with the visit. Patient location (originating site [facility]/state): [place], [place] Provider location (distant site city/state): [place], [place] Video/Phone start time (include am/pm designation): 1:00 PM Video/Phone end time (include am/pm designation): 3:00 PM Total time spent in group class was: 120 minutes. OBJECTIVE: No vitals taken Virtual Visit Estimated Date of Delivery: 11/21/2024 ASSESSMENT: Reviewed gestational diet guidelines. Emphasized the importance of consuming regular meals and snacks (eating every 2-3 hours), increasing fiber in diet for improved post-prandial glucose levels and increased label reading for total carbohydrates. Developed a 40-45% carbohydrate meal plan for patient to help her with quantities, glycemic control and to decrease risk of ketone production. Instructed Patient to check urine ketones and report results to diabetes care and disease education specialist. Instructed on blood glucose monitoring during , blood glucose target ranges, answered questions related to monitoring procedure, use of meter, etc. Discussed physiology of diabetes during , risks to both Baby and Mother, role of exercise during , and medications used during with diabetes and rationale Prescriptions for testing supplies electronically submitted to pharmacy. Patient verbalized understanding of content presented. PLAN: Plan Breakfast Snack Lunch Snack Dinner Snack Time CHO choices 1-2 1-2 3-4 1-2 3-4 1-2 Actual Meat oz/day Fats servings/day Vegetables servings/day Patient will check her blood glucoses before breakfast and one hour after the start of each meal. Patient will test urine ketones every morning until negative to trace for 7 days, then test 2-3 times per week. Patient will be as physically active as able. Patient will follow up with cosmetology educator in about one week Blood Glucose Target Ranges: Fasting <less than or equal to 95mg/dl; 1 hour after meals <less than or equal to 140mg/dl Yolis Celeste RD, LD, [facility]/Pati Tierney RN, MS,[facility] 10/09/2024 2:59 PM SCHOOL DIRECTOR Progress Notes - OB Encounte r - 07/27/2024 - GA:23w2d 07/27/2024 - w2d - Yaneli Esposito MD Normal level II [...] counter - 05/25/2024 - GA:14w2d 05/25/2024 - 2d - Davy Briceño, MS, [facility] / Clinic Note Genetic Counseling RE: Dipesh Jenkins : 2000 MR: [id number] Partner name: not present Referred By: Isela [...] proceed with the level II ultrasound after today s consult. Someone from our scheduling team will reach out to the patient to schedule that appointment. Thank you for allowing us to participate in your patient's care. Please do not hesitate to contact me with any additional questions or concerns. Sincerely, Jay Briceño MS, [facility] Licensed Genetic Counselor Total time: 45 minutes [...] telemedicine as well. Patient location (originating site city/state): [place], [place] Provider location (distant site city/state): [place], [place] Video/Phone start time (include am/pm designation): 8:00 AM Video/Phone end time (include am/pm designation): 8:45 Am [facility] [address] [place] [address] Progress Notes - OB Encounte r - 05/11/2024 - GA:12w2d 05/11/2024 - 12w2d - Yaneli Esposito MD FIRST OB VISIT HPI: Dipesh Jenkins is a 23 y.o. female at 12w2d [...] oz) LMP 02/17/2024 (Exact Date) BMI 27.58 kg/m General Appearance: Alert, appropriate appearance for age. [...] TRACH PROBE 3. Cervical cancer screening Z12.4 EXCHANGE CLERK THIN PREP PAP SCREEN IMAGED Satisfactory exam. Demonstrates appropriate and health-seeking behaviors toward her . Verbalizes good understanding of care schedule and the importance of coming to each visit as scheduled. Start/continue vitamins. Reviewed labs. She was encouraged to call the office with any questions or concerns. Body mass index is 27.58 kg/m . Diet and expected weight gain discussed with [...] counter - 04/27/2024 - GA:10w2d 04/27/2024 - w2d - Rodger Rodriguez RN Patient to see [...] in current to date Rodger Rodriguez RN Women s Health Triage ........ 04/27/2024 1:31 PM Last Filed Vital Signs Vital Sign Reading Time Taken Comments Blood Pressure 104/64 07/27/2024 10:00 AM CDT Pulse 70 07/27/2024 10:00 AM CDT Temperature 36.9 C (98.5 F) 06/04/2024 9:01 AM CDT Respiratory Rate 18 06/04/2024 9:01 AM CDT Oxygen Saturation 97% 06/04/2024 9:01 AM CDT Inhaled Oxygen Concentration - - Weight 75.8 kg (167 lb) 07/27/2024 10:00 AM CDT Height 160.6 cm (5' 3.23) 05/11/2024 1:41 PM CD T Body Mass Index 29.37 05/11/2024 1:41 PM CDT Plan of Treatment Upcoming Encounters Date Type Department Care Team (Late st Contact Info) Description 10/16/2024 3:00 PM HIGH SCHOOL DIRECTOR OB Encounter [facility] [address] [facility] [address] [place] [address] Isela Esposito MD [address] [address] 10/23/2024 3:00 PM HIGH SCHOOL DIRECTOR OB Encounter [facility] [address] [facility] [address] [place] [address] Isela Esposito MD [address] [address] 10/30/2024 4:20 PM HIGH SCHOOL DIRECTOR OB Encounter [facility] [address] [address] Isela Esposito MD [address] [place] [address] 11/06/2024 4:20 PM HIGH SCHOOL DIRECTOR OB Encounter [facility] [address] [address] Isela Esposito MD [address] [place] [address] 11/13/2024 9:20 AM HIGH SCHOOL DIRECTOR OB Encounter [facility] [address] [address] Isela Esposito MD [address] [place] [address] 11/20/2024 4:20 PM HIGH SCHOOL DIRECTOR OB Encounter [facility] [address] [address] Stormy Lim MD [address] [place] [address] 11/21/2024 Hospital Encounter [facility] [address] [place] [address] Bernabe Gould MD [address] [place] [address] Health Maintenance Due Date Last Done Comments Pneumococcal series for age 6-64 (1 of 2 - PCV) 2007 06/17/2003, 05/31/2002, 02/14/2002 Influenza for age 9-49 07/22/2024 10/01/2016, 2005 [...] 05/11/2027 05/11/2024 Tetanus booster 03/22/2032 03/22/2022, 03/30/2013 HPV series for age 9-26 Completed 11/07/20 13, 11/07/2013 (Completed outside of [facility]), 11/02/2013 (Completed outside of [facility]), Additional history exists Tdap Completed 03/22/2022, 03/30/2013 HIV for age 15-65 Completed 05/11/2024, , 11/16/2018 Hepatitis C screening for ag e 18-79 Completed 05/11/2024, 11/30/2021 COVID-19 vaccine series Completed 09/17/20 24, 07/15/2021, 06/24/2021 Procedures Procedure Name Priority Date/Time Associated Diagnosis Comments ANTI HIV 1/2 Routine 05/11/2024 2:25 PM CDT Supervision of other normal , antepartum ANTI HCV Routine 05/11/2024 2:25 PM CDT Supervision of other normal , antepartum GC CHLAMYDIA TRACH PROBE Routine 05/11/2024 2:00 PM CDT Supervision of other normal , antepartum EXCHANGE CLERK THIN PREP PAP SCREEN IMAGED Routine 05/11/2024 2:00 PM CDT Cervical cancer screening from Last 3 Months or Most Recently Relevant to Health Maintenance Results * ANTI HCV (05/11/2024 2:25 PM CDT) HEPATITIS C ANTIBODY Non-Reacti ve Non-React gerardo 05/11/2024 7:03 PM CDT [facility] Comment:Please note, per www [...] PM CDT Isela Esposito MD SEND OUTS [facility] [address] [place] [address], * ANTI HIV 1/2 (05/11/2024 2:25 PM CDT) HIV-1/HIV-2 SCREEN Non-Reacti ve Non-Reacti ve 05/11/2024 7:14 PM CDT [facility] Comment:HIV-1 p24 and HIV-1/ HIV-2 Ab Not Detected. Blood BLOOD SPECIMEN / Unknown Venipuncture / Unknown 05/11/2024 2:25 PM CDT 05/11/2024 2:28 PM CDT Isela Esposito MD SEND OUTS [facility] [address] [place] [address], * EXCHANGE CLERK THIN PREP PAP SCREEN IMAGED (05/11/2024 2:00 PM CDT) Case Report Gynecologic Cytology Report Case: [id number] Authorizing Provider: Isela Esposito MD Collected: 05/11/2024 1400 Ordering Location: [facility] Received: 05/11/2024 1434 [facility] First Screen: Monique Hale Specimen: EXCHANGE CLERK ThinPrep Vial Screening, Cervical 05/22/2024 11:21 AM CDT [facility] INTERPRETATION/ RESULT NEGATIVE FOR INTRAEPITHELIAL LESION OR MALIGNANCY (NIL) (none) 05/22/2024 11:21 AM CDT [facility] IMEN ADEQUACY Satisfactory for evaluation No endocervical component seen in a patient 05/22/2024 11:21 AM CDT [facility] Date of LMP 02/17/2024 05/22/2024 11:21 AM CDT [facility] Last Pap Date NA 05/22/2024 11:21 AM CDT [facility] Last Pap Result First Pap/Unknown 11:21 AM CDT [facility] Abnormal Pap or [place] Bx in last 5 years No 05/22/2024 11:21 AM CDT [facility] Menstrual Status 05/22/2024 11:21 AM CDT [facility] [place] Bx Done Today No 05/22/2024 11:21 AM CDT [facility] Additional Information None given 05/22/2024 11:21 AM CDT [facility] Comment: Cytology is screened at [facility] - [address], [place] [address] and [facility] - [address] [place] [address] and [facility] - [address] [place] [address] Interpreted at [facility] - [address], [place] [address] Automated Review Successful 05/22/2024 11:21 AM CDT [facility] Comment:Specimen processed s uccessfully by automated market specialist device, ThinPrep Imaging System, [employer] Note The pap test is a [...] and malignant lesions. 05/22/2024 11:21 AM CDT [facility] ENTRAL LABORATORY Other (Cervical) Non-Blood / Unknown 05/11/2024 2:00 PM CDT 05/11/2024 2:34 PM CDT Isela Esposito MD PATHOLOGY/CYTOLOGY Performing Organization Address [facility] Co de Phone Number [facility] [address] * GC CHLAMYDIA TRACH PROBE (05/11/2024 2:00 PM CDT) CHLAMYDIA PROBE Negative 5:46 PM CDT [facility] N GONORRHOEAE PROBE Negative 05/12/2024 5:46 PM CDT [facility] Other VAGINAL SWAB / Unknown Non-Blood / Unknown 05/11/2024 2:00 PM CDT 05/11/2024 2:34 PM CDT Isela Esposito MD MICROBIOLOGY Performing Organization Address [facility] de Phone Number [facility] [address] from Last 3 Months or Most Recently Relevant to Health Maintenance Advance Directives * Full Code (Latest Code Status on File) Date Activated Date Inactivated Comments 06/06/2022 8:40 PM 06/10/2022 1:23 PM Question Answer Comments Code Status Discussion: Reviewed Preferences Care Teams Vascular Tech Relationship Specialty Start Date End Date Md Rolo [address] [place] [address] PCP - General 05/12/22 Pcp, No . 11/18/15 Isela Esposito MD [address] [place], [place] [id number] PLASTIC WELDING MACHINE OPERATOR Obstetrics and Gynecology 06/22/24 Pati Tierney, RN [address] [facility] [address] [place] [address] Hospice Nurse Practitioner Registered Nurse 10/08/24 11/21/24 Yolis Celeste Hospice Nurse Practitioner Corking Machine Operator 10/08/24 11/21/24
--- OUTSIDE RECORDS SUMMARY | 2024-10-12 08:48 | XMS_ITS | Clinical Summary ---
Author Organization [facility] Address [address] [place] [address] Care Team Providers Care Municipal Firefighter Name Role Phone Unknown, Md Primary Care [...] Completed 11/07/2013, 06/21, 03/30/2013, Additional history exists Insurance [facility] Care Teams Municipal Firefighter Relationship Specialty Start Date End Date Unknown, NO ADDRESS/PHONE/FAX AFFILIATED PCP - General 08/07/21 Unknown, NO ADDRESS/PHONE/FAX AFFILIATED PCP - Primary Care Clinic 08/07/21
--- OUTSIDE RECORDS SUMMARY | 2024-10-12 08:48 | XMS_ITS | Referral Summary ---
Author Organization [facility] Address [address] [place] [address]. [place] [address] Care Team Providers Care Permanent Waver Name Role Phone Clinic, [facility] Primary Care Provider Paulina Owusu APRN GLASS MOLD REPAIRER Unavailable [phone] Laila Ramirez MD Unavailable [phone] Allergies No known active allergies Medications triamcinolone [...] on file Legal Sex Female 4:43 AM RADIATOR SPECIALIST Gender Identity Not on file Sexual Orientation Not on file Last Filed Vital Signs Vital Sign Reading Time Taken Comments Blood Pressure 109/59 01/28/2022 9:07 AM RADIATOR SPECIALIST Pulse 72 10/09/2019 10:10 AM RADIATOR SPECIALIST Temperature 37.2 C (98.9 F) 01/28/2022 9:07 AM RADIATOR SPECIALIST Respiratory Rate 18 01/28/2022 9:07 AM RADIATOR SPECIALIST Oxygen Saturation 98% 01/28/2022 9:07 AM RADIATOR SPECIALIST Inhaled Oxygen Concentration - - Weight 70.8 kg (156 lb) 01/28/2022 6:43 AM RADIATOR SPECIALIST Height 160 cm (5' 3) 01/28/2022 6:43 AM RADIATOR SPECIALIST Body Mass Index 27.63 01/28/2022 6:43 AM RADIATOR SPECIALIST Plan of Treatment Not on file Procedures Procedure Name Priority Date/Time Associated Diagnosis Comments HIV 1&2 ANTIBODY (EXTERNAL RESULT) Routine 11/30/2021 4:35 PM RADIATOR SPECIALIST from Last 3 Months or Most Recently Relevant to Health Maintenance Results * HIV-1 Antibody (External Result) (11/30/2021 4:35 PM RADIATOR SPECIALIST) HIV 1&2 Antibody (External) Nonreactive Nonreactive EXTERNAL LAB 11/30/2021 4:35 PM RADIATOR SPECIALIST us Patient Reported LAB - HIM EXTERNAL RESULT Final Result EXTERNAL LAB External Lab from Last 3 Months or Most Recently Relevant to Health Maintenance Insurance [facility] Care Teams Permanent Waver Relationship Specialty Start Date End Date [facility] [address] [place] [address] PCP - General 11/04/18 Paulina Owusu APRN GLASS MOLD REPAIRER [address] [place], [place] [address] Nurse Practitioner Nurse Practitioner - Pediatrics 08/28/19 Laila Ramirez MD [address] [address] Pediatric Neurology 08/28/19
== END 2024-10-12 08:45 | disposition home or self-care (01) ==
LOC: NFLDREF 08:45
PROVIDERS: PCP Physician Assistant; Visit Provider Obstetrics & Gynecology
DX: O36.63X0 Maternal care for excessive fetal growth, third trimester, not applicable or unspecified (principal); Z3A.35 35 weeks gestation of pregnancy
CPT/HCPCS: 82728

== ENCOUNTER 2024-10-12 09:18 | Outpatient (CLI) | payer MEDICAID, SELFPAY ==
--- NOTE | 2024-10-12 09:15 | CRLHL7_ITS ---
For Patients: As a result of the Century Cures Act, medical imaging exams and procedure reports are released immediately into your electronic medical record. You may view this report before your referring provider. If you have questions, please contact your health care provider. INDICATION: Third trimester scan, evaluate growth. Uterine size-date discrepancy. COMPARISON: 09/17/2024 TECHNIQUE: Real time hoffman scale imaging of the fetus was performed. FINDINGS: Sonographic imaging demonstrates a single living intrauterine gestation. Fetus demonstrates a regular cardiac rate of 159 beats per minute. Fetus has a vertex position. The placenta lies right posterior. Amniotic fluid volume appears normal and there is a single deepest vertical pocket: 5.8 cm. The estimated weight is 2828gm which lies at the 90th %. On the prior OB ultrasound exam dated 09/17/2024 the estimated weight was at the 81st%. BPD 89th percentile. HC 81st percentile. AC greater than 97th percentile. FL 8th percentile. The HC/AC ratio measures 0.98 range (0.93-1.09). IMPRESSION: Sonographic gestational age 35 weeks 5 days and sonographic due date of 11/11/2024. Sonographic age 10 days ahead of the clinical age. Estimated weight 90th percentile. Abdominal circumference greater than 97th percentile. Dictated by Bernabe Barrios MD @ 10/12/2024 12:39:56 PM (Electronically Signed)
== END 2024-10-12 09:19 | disposition home or self-care (01) ==
LOC: US 09:18
PROVIDERS: PCP Physician Assistant; Visit Provider Obstetrics & Gynecology
DX: O26.843 Uterine size-date discrepancy, third trimester (principal); Z3A.35 35 weeks gestation of pregnancy
CPT/HCPCS: 76816

== ENCOUNTER 2024-10-16 15:36 | Outpatient (CLI) | payer MEDICAID, SELFPAY ==
[2024-10-17 23:08] LABS: Strep B DNA Probe Negative (Negative)
[2024-10-18 20:32] LABS: Strep B Susceptibility Needed? No
== END 2024-10-16 15:37 | disposition home or self-care (01) ==
LOC: NFLDREF 15:37
PROVIDERS: PCP Physician Assistant; Visit Provider Obstetrics & Gynecology
DX: O24.419 Gestational diabetes mellitus in pregnancy, unspecified control (principal); Z3A.34 34 weeks gestation of pregnancy
CPT/HCPCS: 87081; 87653

== ENCOUNTER 2024-10-19 14:16 | Outpatient (CLI) | payer MEDICAID, SELFPAY ==
--- NOTE | 2024-10-19 14:30 | CRLHL7_ITS ---
For Patients: As a result of the Cures Act, medical imaging exams and procedure reports are released immediately into your electronic medical record. You may view this report before your referring provider. If you have questions, please contact your health care provider. INDICATION: Maternal gestational diabetes. COMPARISON: Ob ultrasound from 10/12/2024 FINDINGS: Transabdominal examination of the is performed. A single intrauterine gestation is seen in cephalic presentation with regular cardiac activity at 150 beats per minute. The placenta is anterior and is free of the cervical os. The placental grade is 2 and the amniotic fluid volume is normal. The DVP is normal at 4.5 cm, slightly decreased compared to the previous study where it measured 5.8 cm. The biophysical profile score is 8/8 with no points off. IMPRESSION: 1. Single intrauterine gestation in cephalic presentation with regular cardiac activity. 2. Normal DVP at 4.5 cm, slightly decreased from the previous study. 3. Normal biophysical profile score of 8/8. Dictated by Godwin Horton MD @ 10/20/2024 2:18:17 PM (Electronically Signed)
== END 2024-10-19 14:17 | disposition home or self-care (01) ==
LOC: US 14:17
PROVIDERS: PCP Physician Assistant; Visit Provider Obstetrics & Gynecology
DX: O24.414 Gestational diabetes mellitus in pregnancy, insulin controlled (principal)
CPT/HCPCS: 76819

== ENCOUNTER 2024-10-23 20:15 | Inpatient (IN) | payer MEDICAID, SELFPAY ==
[2024-10-23] VITALS (22 sets, daily range): BP systolic 101–125; BP diastolic 59–75; PULSE 71–95; RESP 12–16; TEMP 36.6–37.1; O2SAT 94–98; BMI 32.7
[2024-10-23] MEDS: MORPHINE 10 MG/ML inj IM (16:29)
[2024-10-23] MEDS: LACTATED RINGERS 500 ML 500 ML IV ×2 (16:59→18:10)
[2024-10-23] MEDS: HYDROmorphone 0.5 mg/0.5 ml inj 0.2 MG IVP (18:21)
--- NOTE | 2024-10-23 20:20 | P.OBHP_ITS ---
OB - H&P: HPI Labor/Induction History of Present Illness Time Seen by Provider: 20:21 Date Seen: 10/23/24 Chief Complaint: The patient is a 23 year old 3 para 1011 at 35 6/7 weeks gestation by first-trimester ultrasound, who presents with painful and regular contractions since about 3:00 a.m. Chief complaint: Maternity : 3 Para: 1 Narrative: Dipesh Jenkins is a 23 year old female who was seen in clinic today for routine care, NST was planned as part of surveillance plan for GDMA2 diagnosis. Patient described uterine contractions since about 3am this morning, every 5 minutes. Denies abnormal vaginal discharge or bleeding. Denied dysuria, urgency or frequency. Denies constipation or diarrhea. NST completed in clinic showing regular uterine contractions and patient visibly very uncomfortable. Recommendation was given for additional evaluation at labor and delivery. Patient was admitted for observation since about 3:30pm. NST showing regular uterine contractions that palpated moderate and patient breathing through them. IVF bolus given as well as one dose of IM Morphine. No significant improvement in pain, uterine contractions remained regular. At around 6pm I checked her cervix and found her internal os 1.5cm and about 50% effaced, soft and anterior. Recommended continued monitoring and to try a different type of pain medication as well as another IVF bolus. Upon recheck at 8pm, cervix is found 3cm and 80% effaced. Patient continues to experience painful and regular uterine contractions. Discussed that at this gestational age, there are no other interventions that are indicated to stop labor, we would allow delivery, but also would not do interventions to stimulate labor. At this point, she has proven that indeed she is in labor and her desire is to proceed with a delivery. Patient understands that surgical sterilization would not be covered by insurance if performed less than 30 days of signing Federal Tubal Consent Form (signed on 10/12/24). Patient does not want to proceed with surgical sterilization at this moment. Specific Issues/Plans Transfer at 25 2/7 weeks gestation from [facility]. 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 10/12/24: Insulin regimen: NPH 30u QHS, Reg 10u TID w/ meals (started 10/09/24), 10/15/24 increased Reg insulin to 15 units w meals. Has CGM. testing form completed on 10/12/24 for NST alternating w/ BPP weekly (twice weekly testing). EFW at 34 weeks 90%. AC > 97%. (see imaging below) # Desires primary LTCS due to traumatic first delivery (cervical laceration) and tubal ligation Does not want salpingectomy wants to have her tubes burned Reviewed tubal ligation and tubal coagulation are not reversible Federal consent signed 10/12/2024 # Ventral fatty tissue abdominal hernia, non reducible General surgery consult: ordered 08/10/24. Patient has been unable to schedule due to work conflicts (Gen surg consults not available on Fridays, her day off). Hopes to complete consults after delivery. Work restrictions ordered to avoid heavy lifting etc. 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 Genetic consult and level 2 US completed this as below #History of preeclampsia Baby ASA started at 12 weeks #History of cervical laceration after first delivery #Anemia 28 weeks, with Hgb = 10.6 Liquid ferrous sulfate 330 mg QOD prescribed 09/0110/01/2024 hgb: 10.0. Ferritin 10/12/24: 6.1 Ordered Iron infusion #nausea secondary to GERD Omeprazole ER 40 mg daily prescribed 09/17/24 #Suspected macrosomia. * US at 30 5/7 weeks: Cephalic, posterior placenta, SDP 6.6 cm, EFW 81%, AC 96%, BPD>97%, HC 80%, FL 8%. labs 05/11/2024: Blood type: O positive, antibody screen negative Hemoglobin: 12.0 Platelets: 267 Rubella: Immune Varicella: Immune RPR: Nonreactive Hep B sAg: Nonreactive Hep B sAb: Nonreactive Hep C Ab: Nonreactive HIV: Nonreactive Urine culture: Negative GC/Chlamydia: Negative x2 Genetic testing: See below Random glucose: 110 Imaging: * 1st trimester: 05/04/2024, single intrauterine at 11 weeks 2 days, STEPHANIE: 11/21/2024. * Anatomy scan: 06/26/2024: Intrauterine at 18 weeks 6 days. Breech, EFW 278 g, 61st percentile. Growth parameters an estimated weight appropriate for gestational age. No major structural anomalies identified. No markers for aneuploidy identified. Normal deepest vertical pocket of amniotic fluid: 5.76 cm. Posterior placenta not previa, transabdominal cervical length is 3 cm. * 09/17/24 30w5d: EFW 1882 g (81%), BPD >97%, HC 80%, AC 96%, FL 8%, SDP 6.6 cm, vertex. * 10/12/24 34w2d: Vtx, SDP 5.8cm. EFW 2828 g, 6 lb 4 oz, 90%. BPD 89%, HC 81%, AC>97%, FL 8% Others: 05/11/2024: Baseline pre labs: BUN: 5, creatinine: 0.48, ALT: 13, AST: 20. Urine to protein creatinine ratio: Urine protein below measurement range, unable to calculate. Genetic consult: After atypical findings on cell free DNA testing, they discussed that the explanation for this cell free DNA screening results was maternal triple X genetics. Patient had microarray analysis of her blood in her last due to the same results from cell free DNA. 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 This condition is sporadic and is the result of an extra X chromosome having been passed by the egg or the sperm at the time of conception. This condition affects approximately 1 in 1200 females. Abnormal results were expected with each . They discussed that Dipesh's extra X chromosome could affect this child's development, however, this chromosome change is NOT associated with an increased risk for defects or mental retardation. Girls with 47, triple X can have speech delay, learning problems and delays in social skills, and possibly reduce fertility as adults. Often, girls in women with 47 triple X are taller than there siblings. Some girls or women with this condition may have very minimal findings or may have several of the features mentioned above. The clinical picture is highly variable. She did complete a level 2 ultrasound by [facility] that was found to be completely normal. Vaccinations: COVID: Vaccine x2, boosted x1, 09/17/24 Flu: Declines Tdap: 09/17/24 RSV: 10/01/24 32 week mental health: completed 10/01/24 Last pap: 2023 GBS negative History of Present Dating criteria: based on 1st trimester US only care: good care Ultrasounds: normal 1st trimester US and normal mid trimester US complications: labor and gestational diabetes Review of Systems Status of ROS: Reports: 10 or more systems reviewed and unremarkable except as noted in History and below Meds Home Medications and Allergies Home Medications ?Medication ?Instructions ?Recorded ?Confirmed ?Type ferrous sulfate 325 mg (65 mg 325 mg PO QDAY 09/17/24 10/23/24 History iron) tablet (Feosol) blood-glucose sensor (Dexcom G7 #1 ea 10/16/24 10/23/24 History Sensor device) insulin aspart U-100 100 unit/mL 1 sliding scale dose subcut DAILY 10/16/24 10/23/24 History (3 mL) subcutaneous pen insulin glargine 100 unit/mL (3 10 unit subcut QPM 10/16/24 10/23/24 History mL) subcutaneous pen (Lantus Solostar U-100 Insulin) pen needle, diabetic 32 gauge x #1,200 ea 10/16/24 10/23/24 History (BD Enriqueta 2nd Gen Pen Needle) Allergies Allergy/AdvReac Type Severity Reaction Status Date / Time cat dander Allergy Mild Congested Verified 10/23/24 15:45 nickel Allergy Mild Rash Verified 10/23/24 15:45 OB - H&P: Exam Physical Exam: Vital signs: Temp Pulse BP Pulse Ox 98 F 80 107/59 L 95 10/23/24 15:51 10/23/24 15:38 10/23/24 15:38 10/23/24 15:40 OB - Problem Based A/P Additional Plan (1) labor: Status: Acute Plan: Will proceed with delivery at this time as per previous plan- delivery upon maternal request. Discussed how surgery is performed and risks associated to surgery such as bleeding, infection, damage to nearby organs, blood clots. Discussed interventions to decrease risks such as prophylactic antibiotics, placement of Rice catheter, SCDs. Discussed family centered c esarean delivery. Discussed usual recovery after delivery. Informed consent was reviewed and patient's questions answered. Discussed that we will have pediatric provider at delivery since baby is , we did discuss that sometimes babies that are born earlier can have trouble with respiratory transition and need to be transferred to a higher level of care-NICU and that could mean that mom and be . (2) Anemia complicating : Status: Acute Plan: Type and screen ordered. (3) GDM, class A2: Status: Acute Plan: Last dose of insulin was 15 units of regular insulin with breakfast. BS monitoring in unit in the 90s. So far there has been no need to treat abnormal blood sugar levels. Plan Proceed with delivery per maternal request due to labor.
[2024-10-23] MEDS: LACTATED RINGERS 1000 ML 1,000 ML 1200 ML IV (20:25)
[2024-10-23] MEDS: AZITHROMYCIN 500 MG in 0.9 % SODIUM CHLORIDE 250 ml 250 ML 255 MG IVPB (20:25)
[2024-10-23 20:35] LABS: Appearance Urine Clear (Clear); Bilirubin Urine Negative (Negative); Blood Urine Negative (Negative); Color Urine Yellow (Yellow); Glucose Urine Negative (Negative); Ketones Urine Negative (Negative); Leukocyte Esterase Urine Negative (Negative); Nitrite Urine Negative (Negative); Protein Urine Negative (Negative); Urobilinogen Urine 0.2 (0.2-1.0); pH Urine 6.5 (5.0-8.5)
[2024-10-23 20:39] LABS: Hemoglobin* 9.9 gm/dL (12.0-16.0)
[2024-10-23] MEDS: CEFAZOLIN 2 GM INJ IVP (21:10)
[2024-10-23] MEDS: TRANEXAMIC ACID 100 MG/ML INJ 1000 MG IV (21:21)
[2024-10-23] MEDS: KETOROLAC 30 MG/ML inj IVP (21:55)
--- NOTE | 2024-10-23 22:14 | PM.OBPRCCS ---
Procedure Date of procedure: 10/23/24 Pre-op diagnosis: IUP at 35 6/7 weeks, labor, section upon maternal request, GDMA2 Post-op diagnosis: same Procedure Done: Global Will [facility] bill your pro fee for this procedure?: Yes Blood Loss Measurement Type: QBL (802) Bakri Used: No IV fluids (mL): 1,000 Urine Output (mL): 300 Urine Output Comment: Clear urine at end of procedure Surgeon: Brodie Hillman MD Drawing In Machine Tender: None Anesthesia Type: Spinal Findings: FINDINGS: Live-born male infant, vertex presentation, Apgars 6 and 8 at 1 and 5 minutes respectively. weight pending. Umbilical hernia sac of about 3cm. Grossly normal bilateral fallopian tubes and ovaries. Procedure Name: Primary low transverse section Procedure Description: PROCEDURE: After obtaining informed consent, the patient was taken to the operating room where spinal anesthesia was obtained and found to be adequate. She was prepared and draped in the normal sterile fashion in the dorsal supine position with a leftward tilt. A Pfannenstiel skin incision was made with a scalpel about 2 cm above symphysis pubic bone, 12-14 cm in length. This incision was carried down to the underlying layer of fascia with the Bovie and scalpel. The fascia was incised in the midline and the incision extended laterally. The rectus muscles were then in the midline. The Ibrahima O retractor was then placed into the incision. The lower uterine segment was then incised in a transverse fashion with the scalpel. Upon entry into the uterus, clear amniotic fluid was noted. The uterine incision was extended cephalo caudally with blunt finger fractionation. The infant's head was delivered atraumatically, followed by the remainder of the infant's body. The nose and mouth were suctioned with the bulb suction. The cord was doubly clamped and cut, after 30 seconds of delayed cord clamping and the infant was handed off the field for evaluation. The placenta was delivered spontaneously with umbilical cord traction and fundal massage. The uterus was cleared of all clots and debris. The uterine incision was reapproximated in a running locking fashion with a 0 Vicryl suture. A 2nd layer of the same suture was used to imbricate in horizontal fashion. The gutters were inspected and cleared of blood clot. All instruments and retractors were removed. Peritoneal layer approximated utilizing Vicryl 3-0 in a continuous fashion. The fascia was reapproximated in a running fashion with a looped 0 Vicryl suture. The subcutaneous tissues were copiously irrigated, inspected and hemostasis secured. The subcutaneous fat layer was reapproximated with running sutures of 3-0 Vicryl. The skin was closed in a subcuticular fashion with 4-0 Monocryl. LiquiBand and dressing were applied. The patient tolerated the procedure well. Sponge, lap, needle, and instrument counts were reported as correct x2. The patient was taken to the recovery room, awake, and in stable condition. She did receive 2 grams of IV Ancef, 500mg of IV Azithromycin preoperatively and 1g of TXA after cord clamp. Complications: None Pathology: specimen obtained, sent to pathology (Placenta) Surgery Debrief Performed: Yes Condition: stable Disposition: floor
--- NOTE | 2024-10-23 22:46 | P.ANES_ITS ---
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
--- NOTE | 2024-10-23 22:47 | P.NB_ITS ---
Nerve Block Nerve Block Time Seen by Provider: 22:15 Date Seen: 10/23/24 Type of block requested by surgeon for post-operative analgesia: TAP Side: bilateral Time out performed: Yes Verification of patient name: Yes Verification of date of : Yes Site marking: not applicable Name of person performing procedure: Janes Continuous monitoring Was continuous monitoring of O2 sat, B/P, traffic monitor specialist, recorded every 15 minutes?: Yes Procedure Checklist: sterile prep, needles and gloves Ultrasound guided. Images saved: Yes Medications given in 5ml increments after negative aspiration: Marcaine %: 0.25 mL: 30 Needle gauge: 20 and Exparel mL: 10 Needle gauge: 20 Patient tolerated procedure well: Yes Block Charges Block Charge (with Pro Fee): TAP Bilateral Use of Ultrasound Machine for Block: Yes- US Guidance/pain block
[2024-10-23] MEDS: LACTATED RINGERS 1000 ML 1,000 ML 125 ML IV ×2 (23:00→23:15)
[2024-10-24] VITALS (25 sets, daily range): BP systolic 92–113; BP diastolic 56–74; PULSE 70–91; RESP 12–18; TEMP 36.6–37.1; O2SAT 94–99
[2024-10-24] MEDS: ACETAMINOPHEN 500 MG TABLET 1000 MG PO ×3 (03:05→19:00)
[2024-10-24] MEDS: KETOROLAC 30 MG/ML inj IVP ×4 (04:10→21:43)
[2024-10-24] MEDS: diphenhydrAMINE 50 MG/ML inj 12.5 MG IVP ×2 (04:20→10:01)
[2024-10-24 07:35] LABS: Hemoglobin* 10.1 gm/dL (12.0-16.0)
[2024-10-24] MEDS: DOCUSATE SODIUM 100 MG CAPSULE PO (09:53)
[2024-10-24] MEDS: FERROUS SULFATE 325 MG TABLET PO (10:01)
[2024-10-24] MEDS: SODIUM CHLORIDE 0.9 % (FLUSH) 10 ML SYRINGE IVF (10:09)
--- NOTE | 2024-10-24 13:24 | P.OBPN_ITS ---
OB - PN:Subj Subjective Date Seen: 10/24/24 Narrative: Dipesh is a 23 y.o. G 3 P 2 who was admitted to L & D for labor. ?She had a section that was complicated by status and GDMA2. Baby was transferred after delivery. The patient feels well. ?The pain is well co ntrolled with current medications. ?She has no new complaints. She plans to formula feed. the patient has done well.? Vitals have been stable.? She has remained afebrile.? Has a good appetite, is tolerating a general diet. ?She is voiding without difficulty.? She is passing gas and has not had a bowel movement.? She is ambulating and denies any dizziness.? Has small amount of rubra lochia. She plans to do her 2 hour gct at her 6 week visit. She desires to leave in the morning to see baby in the NICU as she delivered late at night. Problems: Anemia OB - PN: Obj Exam Physical Exam: Vital signs: Temp Pulse Resp BP Pulse Ox O2 Del Method 98.1 F 71 16 94/59 L 98 Room Air 10/25/24 04:09 10/25/24 04:09 10/25/24 04:09 10/25/24 04:09 10/25/24 04:09 10/25/24 04:09 Narrative: GENERAL APPEARANCE:? normal affect, alert, no distress MOOD:? appropriate CHEST:? clear to auscultation HEART:? regular rate and rhythm ABDOMEN:? soft, non-tender the uterine fundus is At Umbilicus, Midline and is appropriate for the stage of recovery. EXTREMITIES:? normal and no edema INCISION: Dressing in place; clean, dry, and intact OB - PN: A/P Delivery Assessment and Plan (1) care and examination of lactating mother: Status: Acute (2) Anemia complicating : Status: Acute (3) Status post section: Status: Acute (4) GDM, class A2: Status: Acute Plan day: 1 Plan: routine care Comments: plan: Routine post-op care , may see if needed. Pt states she does not think she plans to breastfeed and may formula feed exclusively. Hgb 10.1. Iron supplement ordered orally every other day. Anticipate discharge tomorrow.
[2024-10-24] MEDS: OXYCODONE 5 MG TABLET PO (19:00)
[2024-10-25] MEDS: ACETAMINOPHEN 500 MG TABLET 1000 MG PO ×2 (01:07→06:53)
[2024-10-25] MEDS: OXYCODONE 5 MG TABLET PO ×2 (01:08→06:56)
[2024-10-25 04:09] VITALS: BP 94/59; PULSE 71; RESP 16; TEMP 36.7; O2SAT 98
[2024-10-25] MEDS: KETOROLAC 30 MG/ML inj IVP (04:15)
--- NOTE | 2024-10-25 07:46 | P.DS_ITS ---
DS: Providers Provider Date Seen: 10/25/24 Date of admission: 10/23/24 20:15 Primary care physician: Nereida Perea PA-C Admitting Clinician: Ariana Hillman MD Attending Physician on discharge: Amy RM APRN Date of Discharge: 10/25/24 DS: Diagnosis Discharge Diagnosis (1) GDM, class A2: Status: Acute (2) labor: Status: Acute (3) Anemia complicating : Status: Acute (4) care and examination of lactating mother: Status: Acute Exam Narrative: Exam Narrative: GENERAL APPEARANCE:? normal affect, alert, no distress MOOD:? appropriate CHEST:? clear to auscultation HEART:? regular rate and rhythm ABDOMEN:? soft, the uterine fundus is 2 cm below Umbilicus, Midline and is appropriate for the stage of recovery. EXTREMITIES:? normal and mild edema Incision: Healing well, no surrounding erythema, abnormal induration or discharge Const: Vital Signs, click to edit/add: Vital Signs - 24 hr 10/24/24 09:24 10/24/24 09:26 10/24/24 09:49 Temperature Pulse Rate [Pulse Oximeter] 74 Respiratory Rate 16 18 18 Blood Pressure [Ri ght Arm] 98/61 Pulse Oximetry 98 Oxygen Delivery Me thod Room Air 10/24/24 13:08 10/24/24 13:08 10/24/24 14:26 Temperature 98.2 F Pulse Rate [Pulse Oximeter] 80 Respiratory Rate 18 16 18 Blood Pressure [Ri ght Arm] 92/58 L Pulse Oximetry 98 Oxygen Delivery Me thod Room Air 10/24/24 14:46 10/24/24 15:12 10/24/24 16:57 Temperature Pulse Rate [Pulse Oximeter] Respiratory Rate 16 18 18 Blood Pressure [Ri ght Arm] Pulse Oximetry Oxygen Delivery Me thod 10/24/24 19:23 10/24/24 20:15 10/25/24 04:09 Temperature 98.7 F 98.1 F Pulse Rate [Pulse Oximeter] 82 71 Respiratory Rate 18 18 16 Blood Pressure [Ri ght Arm] 98/63 94/59 L Pulse Oximetry 99 98 Oxygen Delivery Me thod Room Air Room Air OB - DS: Summary Hospital Course Hospital Course: Dipesh is a 23 y.o. G 3 P 1112 who was admitted to L & D for labor and opted for primary .? She had a section that was uncomplicated. The patient feels well.? The pain is well controlled with current medications.? She has no new complaints.?Baby was transferred to NICU for respiratory distress. She is planning to bottlefeed. the patient has done well.? Vitals have been stable.? She has remained afebrile.? Has a good appetite, is tolerating a general diet.? She is voiding without difficulty.? She is passing gas and has not had a bowel movement.? She is ambulating and denies any dizziness.? Has small amount of rubra lochia. She is unsure what she wants to use for prevention.? ? Discharge home to be with baby in NICU.? Follow up in 2 weeks and 6 weeks.? Bottlefeeding. Hgb 10.1. Iron supplement ordered orally every other day? Labs WNL or stable with trending She declined DM screening and will need this . Note added to patient's chart. Abdominal binder requested for Patient's comfort.? Call for signs/symptoms of preeclampsia?? Peripartum Data delivery method: Primary C/S; Labored Laceration description: None Episiotomy description: None Procedures: Procedures Operation Date: 10/23/24 21:15 Actual Procedure Side Surgeon p Primary Low Transverse Section Ariana Hillman MD complications: none [place] Gender: Male Infant Discharge Plan: Baby transferred to NICU for respiratory distress Status at Discharge Overall status at discharge: patient is progressing back to baseline Time Spent with Patient Time attestation: Total time spent providing and/or coordinating discharge services: Time spent: Less than 30 minutes Discharge Plan Discharge Disposition: Home, Self-Care Date of Admission: 10/23/24 20:15 Attending Provider on Discharge: Abby Duran Primary Care Provider: Nereida Perea Condition: Stable Anticipated Discharge Date/Time: 10/25/24 08:00 Discharge Medications: New ferrous sulfate 325 mg (65 mg iron) Tablet 325 mg PO Q OTHER DAY Qty: 100 0RF docusate sodium 100 mg Capsule 100 mg PO BID PRNQty: 100 0RF ibuprofen 600 mg Tablet 600 mg PO Q6H PRN (Reason: Pain) Qty: 30 0RF oxycodone 5 mg Tablet 5 mg PO 3XD PRN (Reason: Pain) Qty: 21 0RF acetaminophen 500 mg Tablet 1,000 mg PO Q6H PRN (Reason: Pain) Qty: 60 0RF Continued ferrous sulfate [Feosol] 325 mg (65 mg iron) tablet 325 mg PO QDAY Discontinued (DME) Blood Glucose Meter Misc See Rx Instructions .Route Qty: 1 0RF Rx Instructions: As directed insulin glargine [Lantus Solostar U-100 Insulin] 100 unit/mL (3 mL) insulin pen 10 unit subcut QPM (DME) pen needle, diabetic [BD Enriqueta 2nd Gen Pen Needle] 32 gauge x 5/32 needle See Rx Instructions .ROUTE DAILY Qty: 1200 Rx Instructions: As directed insulin aspart U-100 100 unit/mL (3 mL) insulin pen 1 sliding scale dose subcut DAILY (DME) Dexcom G7 Sensor Device See Rx Instructions .ROUTE 2XW Qty: 1 Rx Instructions: As directed famotidine [Pepcid] 20 mg tablet 20 mg PO BID Qty: 60 2RF Discharge Orders: Discharge Order (Routine); Ordered 10/25/24 Ordered By: Abby Duran Patient Education: (DC), OB [place] Care, OB /Bottle Feeding Additional Instructions: Discharge instructions were reviewed with the patient including signs and symptoms of infection and home going medications Lifting Restrictions: 20 pounds for 6 weeks No not submerge incision under water X 2 weeks? Nothing vaginally for 6 weeks: no tampons or intercourse Do not drive while taking narcotic pain medication(s) Off Work or School for 8 weeks Symptoms to report to doctor: * Bleeding that saturates more than one pad per hour * Passing clots larger than the size of a golf ball * Pain not relieved by prescribed medication * Fever above 100.4 degrees Fahrenheit * A foul vaginal odor * Difficulty in emotions, mood, and functions * Thoughts of hurting yourself and/or * Painful, reddened area in your breast * Any drainage, redness, or tenderness in your IV/epidural site * Severe headache that doesn't improve after taking medications * Changes in vision, including temporary loss of vision, blurred vision, and/or light sensitivity * Upper abdominal pain (usually under ribs on the right side) * Decrease in urination or painful, frequent urinating * Chest pain * Shortness of breath * Tenderness or pain with redness and/swelling in the calf(s) of your leg 2-week visit: incision check, discuss feeding concerns, review control options and screen for anxiety/depression. 6-week visit for an annual exam. For pain control of abdomen, breast and pelvic pain, take 600 mg Ibuprofen every 6 hours as needed by mouth or 1000 mg acetaminophen (Tylenol) every 6 hours by mouth as needed. You can alternate these so you are taking something every 3 hours as needed. A heating pad can also be used for your abdomen or breasts. You may also take docusate sodium up to twice daily to soften your stools and help to prevent constipation. You may wean off of it when your stools return to normal.? Activity Level: Activity as Tolerated and No strenuous activity Discharge Diet: Diabetic Follow Up Appointments: [facility] [Provider Group] Forms: MyHealth Info Instructions
== END 2024-10-25 09:45 | disposition home or self-care (01) | DRG 788 ==
LOC: OB OUT 20:15 → OB 20:15
PROVIDERS: Admitting Provider Obstetrics & Gynecology; PCP Physician Assistant; Visit Provider Obstetrics & Gynecology
PROC: 10D00Z1 Extraction of Products of Conception, Low, Open Approach (ICD-10-PCS; CPT 59514; principal; 2024-10-23 21:00)
DX: O60.14X0 Preterm labor third trimester with preterm delivery third trimester, not applicable or unspecified (principal); O24.424 Gestational diabetes mellitus in childbirth, insulin controlled; G89.18 Other acute postprocedural pain; O35.19X0 Maternal care for (suspected) chromosomal abnormality in fetus, other chromosomal abnormality, not applicable or unspecified; Q97.0 Karyotype 47, XXX; O99.612 Diseases of the digestive system complicating pregnancy, second trimester; K43.9 Ventral hernia without obstruction or gangrene; O99.02 Anemia complicating childbirth; D64.9 Anemia, unspecified; K21.9 Gastro-esophageal reflux disease without esophagitis; Z37.0 Single live birth; Z3A.35 35 weeks gestation of pregnancy
CPT/HCPCS: 01961; 36415; 64488; 76942; 81003; 82962; 85018; 86850; 86900; 86901; 87086; 88307; 99140; A9270; C9290; J0456; J0665; J0690; J1100; J1171; J1200; J1885; J2250; J2270; J2274; J2371; J2405; J2590; J3010; J7050; J7120

== ENCOUNTER 2024-12-11 14:14 | Outpatient (CLI) | payer MEDICAID, SELFPAY | END 2024-12-11 14:15 | disposition home or self-care (01) | LOC: NFLDREF 12-12 01:48 | PROVIDERS: PCP Physician Assistant; Referring Provider Physician Assistant; Visit Provider Advanced Practice Midwife | DX: O24.439 Gestational diabetes mellitus in the puerperium, unspecified control (principal) | CPT/HCPCS: 82947; 82950; 84702 ==